=== PATIENT | male | born 1985 | race Caucasian/White ===

== ENCOUNTER 2025-09-30 08:33 | Outpatient (CLI) | payer BC, SELFPAY ==
--- OUTSIDE RECORDS SUMMARY | 2025-08-24 12:01 | XMS_ITS | Encounter Summary ---
Author Organization [facility] Address [address] [place] [address] Care Team Providers Care Runner Out Name Role Phone Provider, No Known Primary Care Provider [phone] Reason for Visit * Reason Comments Chest Pain * Auth/Cert Specialty Diagnoses / Procedures Referred By Juan britt Referred To Contact Diagnoses Pulmonary embolism Referral ID Status Reason Start Date Expiration Date Visits Re quested Visits Authorized [id number] 1 1 Encounter Details Date Type Department Care Team (Latest Contact Info) Description 08/24/2025 1:01 PM EDT - 08/25/2025 1:12 PM EDT Hospital Encounter [facility] [address] [place] [id number] Lance Navarro MD [address] [place] [address] Lisa Cleveland MD [address] [facility] [address] [place] [address] Bala Cruz MD [address] [facility] [address] [place] [address] Acute pulmonary embolism without acute cor pulmonale, unspecified pulmonary embolism type (Primary Dx); Tachycardia; Hyperglycemia Discharge Disposition: Home or Self Care Social History Tobacco Use Types Packs/Day Years Used Date Smoking Tobacco: Never Smokeless Tobacco: Never Alcohol Use Standard Drinks/Week Comments Yes 20 (1 standard drink = 0.6 oz pu re alcohol) AUDIT-C Answer Date Recorded Q1: How often do you have a drink containing alcohol? 4 or more times a week 08/24/2025 Q2: How many drinks containi ng alcohol do you have on a typical day when you are drinking? 5 or 6 Q3: How often do you have si x or more drinks on one occasion? Daily or almost daily 08/24/2025 Abuse Screen Answer Date Recorded Feels Unsafe at Home or Work/School no 08/24/2025 Feels Threatened by Someone no 08/06 Does Anyone Try to Keep You From Having Contact with Others or Doing Things Outside Your Home? no 08/24/2025 Physical Signs of Abuse Present no 08/24/2025 Housing Stability Answer Date Recorded Current Living Arrangements home 08/06 Potentially Unsafe Housing Conditions Not on betsy e 08/24/2025 Family and Community Support Answer Carlo e Recorded Help with Day-to-Day Activities Not on file 08/13/2023 Lonely or Isolated Not on file 08/13/2023 Employment Answer Date Recorded Do you want help finding or keeping work or a jeremi b? Not on file 08/13/2023 Disabilities Answer Date Recorded Difficulty Concentrating, Remembering or Making Decisions no 08/24/2025 Difficulty Managing Errands Independently no 08/24/2025 Education Answer Date Recorded Help with school or training? Not on file Preferred Language Not on file 08/13/2023 Sex and Gender Information Value Date Recorded Sex Assigned at Not on file Legal Sex Male 8:27 PM EDT Gender Identity Not on file Sexual Orientation Not on file documented as of this encounter Last Filed Vital Signs Vital Sign Reading Time Taken Comments Blood Pressure 138/78 08/25/2025 11:15 AM EDT Pulse 79 08/25/2025 11:15 AM EDT Temperature 36.5 C (97.7 F) 08/25/2025 11:15 AM EDT Respiratory Rate 16 08/25/2025 11:15 AM EDT Oxygen Saturation 97% 08/25/2025 11:15 AM EDT Inhaled Oxygen Concentration - - Weight 131 kg (288 lb 1.6 oz) 08/24/2025 4:08 PM EDT Height 185.4 cm (6' 1 ) 08/24/2025 4:08 PM EDT Body Mass Index 38.01 08/24/2025 4:08 PM EDT documented in this encounter Functional Status * Calculated C-SSRS Risk Score (Lifetime/Recent) Answer Date of Assessment Author No Risk Indicated 08/24/2025 12:59 PM EDT Renuka Hogan RN * [place] Suicide Severity Rating Scale (Screener/Recent Self-Report) Question Answer Date of Assessment Author 1. Wish to be (Past 1 Month) No 025 12:59 PM EDT Renuka Hogan RN 2. Non-Specific Active Suici natalya Thoughts (Past 1 Month) No 08/24/2025 12:59 PM EDT Audrey Hogan RN 6. Suicidal Behavior (Lifetime) No 12:59 PM EDT Renuka Hogan RN documented as of this encounter Discharge Summaries * Bala Cruz MD - 08/25/2025 11:06 AM EDT Images from the original note were not included. [facility] Medicine Services DISCHARGE SUMMARY Patient Name: Misael Wills : 1985 Date of Admission: 08/24/2025 1:01 PM Date of Discharge: 08/25/2025 Consults Date and Time Order Name Status Description 08/25/2025 9:35 AM Inpatient Cardiology Consult 08/24/2025 9:55 PM Hematology & Oncology Inpatient Consult 08/24/2025 2:57 PM [facility] (on-call MD unless specified) Details Hospital Course Active Hospital Problems Diagnosis POA ??? Pulmonary embolism [I26.99] Yes ??? Class 2 severe obesity with serious comorbidity in adult [E66.812] Yes ??? Family history of blood clots [Z82.49] Not Applicable ??? History of COVID-19 [Z86.16] Yes ??? HTN (hypertension) [I10] Yes Resolved Hospital Problems No resolved problems to display. Chief Complaint: Off-and-on chest pain panic attacks since Sunday including pain and discomfort in his left groin. History of Present Illness: As written by the admitting physician on the day of admission. Patient is a 39-year-old male who was diagnosed with saddle embolus about 5 years ago when he presented to the local emergency room in [place] with episodes of panic attacks and shortness of breath. Patient was noted to have acute pulmonary embolism that required intervention but extensive workup for underlying cause of PE was never found. Patient was diagnosed with nonprovoked pulmonary embolism and was placed on chronic anticoagulation therapy with Xarelto which he claims to be compliant. Since then patient has multiple visits to the emergency room with episodes of panic attack and shortness of breath and discomfort in his left leg and has had negative evaluations. His last extensive ER visit was 3 months ago when he had negative D-dimer and negative CT scan of the chest PE protocol.In this background patient started feeling some shortness of breath this week and while he was hiking with his which was little bit more than his baseline panic related shortness of breath. He also had few episodes of chest pain and panic attack that resolved on its own. Today he had similar attack along with pain in his left leg that he came to the emergency room and was noted to have rightlung PE while he is taking Xarelto. Patient had negative venous Doppler of the lower extremity but has chronic venous stasis changes. Patient claims that multiple family members on his side have a history of blood clots. Patient claims that he is living healthy lifestyle and has lost lots of weight since his diagnosis of pulmonary embolism 5 years ago. Patient denies any other symptoms at this time. Patient admits touse alcohol but claims that he is drinking responsibly. Patient denies any smoking or taking any hormone replacement therapy. Hospital Course: Misael Wills is a 39 y.o. male presents the hospital with chest pain and panic attack that had been going on for several days. Patient was concerned he was having a new pulmonary embolism. He underwent CT angiogram which did identify PE. I discussed with the radiologist further. He reviewed thisfurther and reported it was unchanged from previous studies and the appearance of the particular thrombus was chronic appearing in nature. The radiologist for our conversation did not feel this was new. This was also reviewed with the hematology on collagen team that was consulted to assist with management. They felt patient should continue current Xarelto. They did note that patient had some coronary artery calcifications on his CT scan and recommended cardiology consult in the setting of chest pain with panic attacks. Cardiology recommended patient add low-dose aspirin and statin and continue to work on his diet and exercise. They did not feel patient showed any sign of ACS. Please see their full note for full details. Lower extremity duplex was negative for DVT. Patient does have some atelectasis on imaging. Blood pressure reasonably normal. Cardiology recommended to hold off blood pressure medicine for now. Primary care follow-up for blood pressure check. Patient is eager to discharge today. We had extensive conversation and he has been cleared by both cardiology and hematology oncology. I do recommend also he consider outpatient psychiatric evaluation if he is having issues with panic attack. He may need treatment for anxiety. He is to follow-up with his primary care provider in 1 week for general hospital follow-up and is agreeable with this plan. At the time of discharge patient was told to take all medications as prescribed, keep all follow-up appointments, and call their doctor or return to the hospital with any worsening or concerning symptoms. Please note that this note was made using Head[employer] voice recognition software Day of Discharge Subjective: No further chest pain. Patient feels well. He is breathing comfortably. He says he feltvery anxious yesterday and worries a lot about the blood clot he had several years ago. We reviewedall the findings. We reviewed radiologist report that these thromboses are unchanged and chronic inappearance. Patient is currently 99% on room air oxygen. He would like to go home today. He agrees to call primary care and follow-up in 1 week for general hospital follow-up. No further chest pain or other cardiac symptoms currently. No current fevers or chills No current shortness of breath or cough No current nausea, vomiting, or diarrhea No current chest pain or palpitations Vital Signs: Temp: [97.4 ??F (36.3 ??C)-98.5 ??F (36.9 ??C)] 97.9 ??F (36.6 ??C) Heart Rate: [74-118] 80 Resp: [16-18] 16 BP: (123-189)/(68-96) 133/84 Physical Exam: Constitutional: Awake, alert Respiratory: No cough or wheezes, normal respirations, nonlabored breathing Cardiovascular: Pulse rate is normal, palpable radial pulses Gastrointestinal: Soft, nontender, nondistended Musculoskeletal: BMI is 38 obese otherwise relatively normal musculature for age Psychiatric: Appropriate affect, cooperative, conversational Neurologic: No slurred speech or facial droop, follows commands Skin: No rashes or jaundice, warm Pertinent and/or Most Recent Results Results from last 7 days Lab Units 08/25/25 0616 08/24/25 1259 WBC 10*3/mm3 9.85 10.03 HEMOGLOBIN g/dL 16.5 17.6 HEMATOCRIT % 48.1 51.7* PLATELETS 10*3/mm3 202 236 SODIUM mmol/L 139 138 POTASSIUM mmol/L 4.1 4.0 CHLORIDE mmol/L 103 100 CO2 mmol/L 23.7 23.5 BUN mg/dL 11.0 12.0 CREATININE mg/dL 0.89 0.97 GLUCOSE mg/dL 88 114* CALCIUM mg/dL 9.2 9.8 Results from last 7 days Lab Units 08/25/25 0616 08/24/25 1259 BILIRUBIN mg/dL 0.8 0.6 ALK PHOS U/L 56 67 ALT (SGPT) U/L 18 23 AST (SGOT) U/L 16 19 PROTIME Seconds -- 17.2* INR -- 1.40* APTT seconds -- 33.8 Results from last 7 days Lab Units 08/25/25 0616 CHOLESTEROL mg/dL 178 TRIGLYCERIDES mg/dL 168* HDL CHOL mg/dL 37* LDL cholesterol 111 Results from last 7 days Lab Units 08/24/25 1410 08/24/25 1259 HSTROP T ng/L <6 <6 Imaging Results (All) Procedure Component Value Units Date/Time XR Chest 1 View [[id number]] Collected: 08/24/25 1501 Updated: 08/24/25 1506 Narrative: XR CHEST 1 VW- DATE OF EXAM: 08/24/2025 2:23 PM INDICATION: Chest Pain Triage Protocol. COMPARISON: CT chest 08/24/2025. TECHNIQUE: A single portable AP view of the chest was obtained. FINDINGS: Right positioning. Overlying artifacts. Subtle bibasilar groundglass opacities. No dense lung consolidation. No pneumothorax. Cardiomediastinal contours within normal limits. No acute osseous abnormality is identified. Impression: Subtle bibasilar groundglass opacities, which could represent atelectasis, pneumonia, and/or pulmonary infarct. This report was finalized on 08/24/2025 3:03 PM by Lanre England MD on CT Angiogram Chest Pulmonary Embolism [[id number]] Collected: 08/24/25 1433 Updated: 08/24/25 1450 Addenda: Additional impression point: Premature coronary artery calcification. This report was finalized on 08/24/2025 2:[address] Davidson Palacios M.D on Signed: 08/24/25 1447 by Alex Palacios MD Narrative: CTA CHEST PULMONARY EMBOLISM HISTORY: Chest pain COMPARISON: None TECHNIQUE: Radiation dose reduction techniques were utilized, including automated exposure control and exposure modulation based on body size. 2 mm images were obtained through the chest without the administration of IV contrast. FINDINGS: CARDIOVASCULAR: Occlusive thrombus within the distal left lower lobe pulmonary artery. Normal heart size without right heart strain. No pericardial effusion. Coronary artery calcium. LUNGS AND AIRWAYS: Basilar groundglass opacities within the peripheral left lower lobe may represent atelectasis versus trace hemorrhage secondary to pulm embolism. Central airways are clear. PLEURA: No pleural effusion or pneumothorax. LYMPH NODES: No lymphadenopathy. MUSCULOSKELETAL: No acute or aggressive osseous lesions. UPPER ABDOMEN: Unremarkable. OTHER: No additional findings. Impression: Occlusive thrombus within the distal left lower lobe pulmonary artery without right heart strain. This report was finalized on 08/24/2025 2:[address] Davidson Palacios M.D on Results for orders placed during the hospital encounter of 08/24/25 Duplex Venous Lower Extremity - Left CAR 08/24/2025 2:34 PM Interpretation Summary ??? Normal left lower extremity venous duplex scan. Results for orders placed during the hospital encounter of 08/24/25 Duplex Venous Lower Extremity - Left CAR 08/24/2025 2:34 PM Interpretation Summary ??? Normal left lower extremity venous duplex scan. Discharge Details Discharge Medications New Medications Instructions Start Date acetaminophen 325 MG tablet Commonly known as: TYLENOL 650 mg, Oral, Every 6 Hours PRN aspirin 81 MG EC tablet 81 mg, Oral, Daily atorvastatin 10 MG tablet Commonly known as: LIPITOR 10 mg, Oral, Nightly Continue These Medications Instructions Start Date rivaroxaban 20 MG tablet Commonly known as: XARELTO 20 mg, Oral, Daily, Pt takes medication everyday at 1430 last taken 08/24 Allergies Allergen Reactions ??? Shellfish Allergy Anaphylaxis ??? Sulfa Antibiotics Unknown - Low Severity Discharge Disposition: Home or Self Care Diet: Hospital: Diet Order Procedures ??? Diet: Cardiac; Healthy Heart (2-3 Na+); Fluid Consistency: Thin (IDDSI 0) Standing Status: Standing Number of Occurrences: 1 Diets:: Cardiac Cardiac Diet:: Healthy Heart (2-3 Na+) Fluid Consistency:: Thin (IDDSI 0) Activity: Activity Instructions Activity as Tolerated Up WIth Assist CODE STATUS: Code Status and Medical Interventions: CPR (Attempt to Resuscitate); Full Support Ordered at: 08/24/25 630 Code Status (Patient has no pulse and is not breathing): CPR (Attempt to Resuscitate) Medical Interventions (Patient has pulse or is breathing): Full Support Additional Instructions for the Follow-ups that You Need to Schedule Discharge Follow-up with Specified Provider: Primary care 1 week; 1 Week As directed To: Primary care 1 week Follow Up: 1 Week Follow-up Information Provider, No Known . Contact information: [facility] [address] Bala Cruz MD 08/25/25 Time Spent on Discharge: I spent greater than 35 minutes on this discharge activity which included:[id number] encounter with the patient, reviewing the data in the system, coordination of the carewith the nursing staff as well as consultants, documentation, and entering orders. documented in this encounter Medications at Time of Discharge acetaminophen (TYLENOL) 325 MG tablet Take 2 tablets by mouth Every 6 (Six) Hours As Needed for Mild Pain. 08/25/2025 aspirin 81 MG EC tablet Take 1 tablet by mouth Daily. 08/25/2025 atorvastatin (LIPITOR) 10 MG tablet Take 1 tablet by mouth Every Night. 90 tablet 08/25/2025 documented as of this encounter Progress Notes * Eli Hackett, RN - 08/25/2025 1:12 PM EDT Discharge Planning Assessment [facility] Patient Name: Misael Wills Today's Date: 08/25/2025 Admit Date: 08/24/2025 Plan: Home Discharge Needs Assessment No documentation. Discharge Plan Row Name 08/25/25 2322 Plan Plan Home Final Discharge Disposition Code 01 - home or self-care Final Note Home Continued Care and Services - Discharged on 08/25/2025 Admission date: 08/24/2025 - Discharge disposition: Home or Self Care No active coordination exists. Expected Discharge Date and Time Expected Discharge Date Expected Discharge Time Aug 25, 2025 Demographic Summary No documentation. Functional Status No documentation. Psychosocial No documentation. Abuse/Neglect No documentation. Legal No documentation. Substance Abuse No documentation. Patient Forms No documentation. Eli Hackett RN documented in this encounter H&P Notes * Lisa Cleveland MD - 08/24/2025 6:10 PM EDT Internal medicine history and physical [facility] Patient Identification: Name: Misael Wills Age: 39 y.o. Sex: male : 1985 Primary Care Physician: Provider, No Known Date of admission:08/24/2025 Chief Complaint: Off-and-on chest pain panic attacks since Sunday including pain and discomfort in his left groin. History of Present Illness: Patient is a 39-year-old male who was diagnosed with saddle embolus about 5 years ago when he presented to the local emergency room in [place] with episodes of panic attacks and shortness of breath. Patient was noted to have acute pulmonary embolism that required intervention but extensive workupfor underlying cause of PE was never found. Patient was diagnosed with nonprovoked pulmonary embolism and was placed on chronic anticoagulation therapy with Xarelto which he claims to be compliant. Since then patient has multiple visits to the emergency room with episodes of panic attack and shortness of breath and discomfort in his left leg and has had negative evaluations. His last extensive ERvisit was 3 months ago when he had negative D-dimer and negative CT scan of the chest PE protocol. In this background patient started feeling some shortness of breath this week and while he was hiking with his which was little bit more than his baseline panic related shortness of breath. He also had few episodes of chest pain and panic attack that resolved on its own. Today he had similar attack along with pain in his left leg that he came to the emergency room and was noted to have right lung PE while he is taking Xarelto. Patient had negative venous Doppler of the lower extremity but has chronic venous stasis changes. Patient claims that multiple family members on his side have a history of blood clots. Patient claims that he is living healthy lifestyle and has lost lots of weight since his diagnosis of pulmonary embolism 5 years ago. Patient denies any other symptoms at this time. Patient admits to use alcohol but claims that he is drinking responsibly. Patient denies any smoking or taking any hormone replacement therapy. Past Medical History: Past Medical History: Diagnosis Date PE (pulmonary thromboembolism) Past Surgical History: Past Surgical History: Procedure Laterality Date HERNIA REPAIR Home Meds: Prescriptions Prior to Admission[1] Current Meds: Current Medications[2] Allergies: Allergies[3] Social History: Social History Tobacco Use Smoking status: Never Smokeless tobacco: Never Substance Use Topics Alcohol use: Yes Alcohol/week: 20.0 - 42.0 standard drinks of alcohol Types: 20 - 42 Standard drinks or equivalent per week Family History: Family History Family history unknown: Yes Review of Systems See history of present illness and past medical history. As noted in the history of presenting illness patient denies any chest pain hematemesis. He does have episodic panic attack and shortness of breath. Vitals: BP 156/73 (BP Location: Left arm, Patient Position: Lying) Pulse 93 Temp 98.1 ??F (36.7 ??C) (Oral) Resp 16 Ht 185.4 cm (73 ) Wt 131 kg (288 lb 1.6 oz) SpO2 97% BMI 38.01 kg/m?? I/O: No intake or output data in the 24 hours ending 08/24/251810 Exam: Patient is examined using the personal protective equipment as per guidelines from infection control for this particular patient as enacted. Hand washing was performed before and after patient interaction. General Appearance: Alert, cooperative, no distress, appears stated age Head: Normocephalic, without obvious abnormality, atraumatic Eyes: PERRL, conjunctiva/corneas clear, EOM's intact, both eyes Ears: Normal external ear canals, both ears Nose: Nares normal, septum midline, mucosa normal, no drainage or sinus tenderness Throat: Lips, tongue, gums normal; oral mucosa pink and moist Neck: Supple, symmetrical, trachea midline, no adenopathy; thyroid: no enlargement/tenderness/nodules; no carotid bruit or JVD Back: Symmetric, no curvature, ROM normal, no CVA tenderness Lungs: Clear to auscultation bilaterally, respirations unlabored Chest Wall: No tenderness or deformity Heart: Regular rate and rhythm, S1 and S2 normal, no murmur, rub or gallop Abdomen: Soft, non-tender, bowel sounds active all four quadrants, no masses, no hepatomegaly, no splenomegaly Extremities: Chronic lower extremity changes involving 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 Pulses: Pulses palpable in all extremities; symmetric all extremities Skin: Skin color normal, Skin is warm and dry, no rashes or palpable lesions Neurologic: CNII-XII intact, motor strength grossly intact, sensation grossly intact to light touch, no focal deficits noted Data Review: I reviewed the patient's new clinical results. Results from last 7 days Lab Units 08/24/25 1259 WBC 10*3/mm3 10.03 HEMOGLOBIN g/dL 17.6 PLATELETS 10*3/mm3 236 Results from last 7 days Lab Units 08/24/25 1259 SODIUM mmol/L 138 POTASSIUM mmol/L 4.0 CHLORIDE mmol/L 100 CO2 mmol/L 23.5 BUN mg/dL 12.0 CREATININE mg/dL 0.97 CALCIUM mg/dL 9.8 GLUCOSE mg/dL 114* XR Chest 1 View Result Date: 08/24/2025 Subtle bibasilar groundglass opacities, which could represent atelectasis, pneumonia, and/or pulmonary infarct. This report was finalized on 08/24/2025 3:03 PM by Lanre England MD on CT Angiogram Chest Pulmonary Embolism Addendum Date: 08/24/2025 Additional impression point: Premature coronary artery calcification. This report was finalized on 08/24/2025 2:[address] Davidson Palacios M.D on Result Date: 08/24/2025 Occlusive thrombus within the distal left lower lobe pulmonary artery without right heart strain. This report was finalized on 08/24/2025 2:[address] Davidson Palacios M.D on Telemetry Scan Final Result Telemetry Scan Final Result ECG 12 Lead ED Triage Standing Order; Chest Pain Final Result HEART RATE=84 bpm RR Pkleolwo=353 ms MN Ktvmizsa=260 ms P Horizontal Quogue= deg P Front Quogue=70 deg QRSD Interval=97 ms QT Ndmjdtxu=926 ms ZGdP=066 ms QRS Quogue=89 deg T Wave Quogue=10 deg - BORDERLINE ECG - Sinus rhythm Consider left atrial enlargement Borderline T wave abnormalities NO PRIOR TRACING AVAILABLE FOR COMPARISON Electronically Signed By: Nazanin QuarlesDIGN[facility] HE[facility]) 2025-08-24 15:59:15 Date and Time of Study:2025-08-24 13:00:13 Assessment: Active Hospital Problems Diagnosis POA Pulmonary embolism [I26.99] Yes Family history of blood clots [Z82.49] Not Applicable History of COVID-19 [Z86.16] Unknown HTN (hypertension) [I10] Unknown History of alcohol use. Medical decision making/care plan: See admitting orders Breakthrough pulmonary embolism with no evidence of right heart strain in the setting of history ofunprovoked massive PE 5 years ago requiring intervention and while on chronic oral anticoagulation therapy with compliance-plan is to start him on therapeutic dose of Lovenox, hematology oncology consultation and consideration for switching him to different anticoagulation therapy given the fact that he has breakthrough PE and had similar symptoms in the past with negative workup. Hypertension-patient is not on any hypertensive regimen. It could be situational elevation in bloodpressure and needs to be monitored with consideration for starting him on long-term blood pressure regimen. History of alcohol use but no evidence of alcohol withdrawal plan is to monitor. Lisa Cleveland MD 08/24/2025 18:11 EDT Parts of this note may be an electronic greaser helper/translation of spoken language to printed text using the [employer] system. [1] Medications Prior to Admission Medication Sig Dispense Refill Last Dose/Taking rivaroxaban (XARELTO) 20 MG tablet Take 1 tablet by mouth Daily. Pt takes medication everyday at 1430 last taken 08/24 [2] Current Facility-Administered Medications: labetalol (NORMODYNE,TRANDATE) injection 10 mg, 10 mg, Intravenous, Once PRN, Lance Navarro MD sodium chloride 0.9 % flush 10 mL, 10 mL, Intravenous, PRN, Lance Navarro MD [3] Allergies Allergen Reactions Shellfish Allergy Anaphylaxis Sulfa Antibiotics Unknown - Low Severity documented in this encounter Consult Notes * Aquiles Mcrae MD - 08/25/2025 11:20 AM EDTAssociated Order(s): IP CONSULT TO CARDIOLOGY Images from the original note were not included. Date of Consultation: 08/25/25 Referral Provider: Dania Baez MD. Reason for Consultation: Coronary artery calcifications by CT. Encounter Provider: Aquiles Mcrae MD Group of Service: [facility] Patient Name: Misael Wills :1985 Chief complaint: Shortness of breath. History of Present Illness: This is a very pleasant 39 year-old male with a history of an unprovoked DVT and saddle pulmonary embolism in October 2020. He has had significant anxiety about this diagnosis as it was very traumatic when it occurred, and has had multiple CT scans over the years (which he freely admits). He presented to the emergency department yesterday with shortness of breath while hiking, as well as intermittent left lower extremity discomfort. A CT angiogram showed a pulmonary embolism, although after speaking with Dr. Baez, this is a chronic distal left lower lobe pulmonary embolism. There were no acute findings. Therefore, he did not actually fail Xarelto. The patient had coincidentally found coronary calcification on his CT. On my review, these are mostprominent in the right coronary artery. He has had no anginal pain. His blood pressure has been elevated here at times, although mainly on admission, which he states is from anxiety. He states that at home, his blood pressure runs mainly in the 120s to 130s systolic. He does not have a family history of coronary artery disease and he is not currently diabetic. Past Medical History: Diagnosis Date PE (pulmonary thromboembolism) Past Surgical History: Procedure Laterality Date HERNIA REPAIR Allergies Allergen Reactions Shellfish Allergy Anaphylaxis Sulfa Antibiotics Unknown - Low Severity No current facility-administered medications on file prior to encounter. Current Outpatient Medications on File Prior to Encounter Medication Sig Dispense Refill rivaroxaban (XARELTO) 20 MG tablet Take 1 tablet by mouth Daily. Pt takes medication everyday at 1430 last taken 08/24 Social History Socioeconomic History Marital status: Tobacco Use Smoking status: Never Smokeless tobacco: Never Vaping Use Vaping status: Never Used Substance and Sexual Activity Alcohol use: Yes Alcohol/week: 20.0 - 42.0 standard drinks of alcohol Types: 20 - 42 Standard drinks or equivalent per week Drug use: Never Sexual activity: Defer Family History Family history unknown: Yes REVIEW OF SYSTEMS: As are noted in the HPI above. Otherwise, all other systems were reviewed, and are negative. Objective: Vitals: 08/25/25 0036 08/25/25 0410 08/25/25 0719 08/25/25 1115 BP: 128/75 146/79 133/84 138/78 BP Location: Left arm Left arm Left arm Left arm Patient Position: Lying Lying Lying Lying Pulse: 74 78 80 79 Resp: 16 16 16 16 Temp: 98.5 ??F (36.9 ??C) 98 ??F (36.7 ??C) 97.9 ??F (36.6 ??C) 97.7 ??F (36.5 ??C) TempSrc: Oral Oral Oral Oral SpO2: 100% 99% 100% 97% Weight: Height: Body mass index is 38.01 kg/m??. Flowsheet Rows Flowsheet Row First Filed Value Admission Height 185.4 cm (73 ) Documented at 08/24/2025 1608 Admission Weight 131 kg (288 lb 1.6 oz) Documented at 08/24/2025 1608 General: No acute distress, alert and oriented x4, pleasant Head: Normocephalic, atraumatic. Eyes: Conjunctivae and sclerae normal, no icterus. Throat: No oral lesions, no thrush, oral mucosa moist. Neck: Supple, trachea midline. Lungs: Clear to auscultation bilaterally Heart: Regular rhythm and normal rate. No murmurs, gallops, or rubs noted. Abdomen: Soft, non-tender, non-distended, positive bowel sounds. Extremities: No clubbing, cyanosis, or edema. Pulses: Pulses palpable and equal bilaterally. Skin: No bleeding or rash. Neuro: Non-focal. Moves all extremities well. Psychiatric: Normal mood and affect. Lab Review: Results from last 7 days Lab Units 08/25/25 0616 SODIUM mmol/L 139 POTASSIUM mmol/L 4.1 CHLORIDE mmol/L 103 CO2 mmol/L 23.7 BUN mg/dL 11.0 CREATININE mg/dL 0.89 GLUCOSE mg/dL 88 CALCIUM mg/dL 9.2 Results from last 7 days Lab Units 08/24/25 1410 08/24/25 1259 HSTROP T ng/L <6 <6 Results from last 7 days Lab Units 08/25/25 0616 WBC 10*3/mm3 9.85 HEMOGLOBIN g/dL 16.5 HEMATOCRIT % 48.1 PLATELETS 10*3/mm3 202 Results from last 7 days Lab Units 08/24/25 1259 INR 1.40* APTT seconds 33.8 Results from last 7 days Lab Units 08/25/25 0616 CHOLESTEROL mg/dL 178 Results from last 7 days Lab Units 08/25/25 0616 CHOLESTEROL mg/dL 178 TRIGLYCERIDES mg/dL 168* HDL CHOL mg/dL 37* LDL CHOL mg/dL 111* EKG (reviewed by me personally): Assessment: 1. History of unprovoked saddle pulmonary embolism and DVT in October 2020, on Xarelto 2. Chronic left lower lobe pulmonary embolism (not acute) 3. Dyslipidemia with low HDL 4. Coronary artery calcifications by CT on 08/24/2025 5. Questionable hypertension Plan: I had a long discussion with the patient. I did review the CT images personally. He has more calcium than would be expected at his age, especially at age 39. His right coronary artery appeared to have the biggest burden on my viewing. However, he does not have any EKG changes consistent with ischemia, and he is not having anginal symptoms. I would utilize this as a preventative technique and treat this as a nonobstructive coronary arterydisease equivalent in a young patient. I recommended potentially starting aspirin 81 mg/day if he can take this in conjunction with his Xarelto. I also recommended starting Lipitor 20 mg/day. I did advise him about potential side effects of statins, and he was okay with starting this. His LDL was 111, although HDL was only 37. I am going to hold on starting him on any antihypertensives as his blood pressure has come down significantly, he does admit that he has a significant amount of anxiety about his previous pulmonary emboli. He is going to follow-up with his physician in [place], [place]. No further cardiac testing needed. Discussed with Dr. Cruz earlier today. Thank you very much for this consult. Marko Mcrae MD * Dania Baez MD - 08/25/2025 9:15 AM EDTAssociated Order(s): IP CONSULT TO HEMATOLOGY AND ONCOLOGY [facility] INITIAL INPATIENT CONSULTATION NOTE REASON FOR CONSULTATION: breakthrough Pulmonary embolism while on Xarelto - treatment recommendations HISTORY OF PRESENT ILLNESS: Misael Wills is a 39 y.o. male with generalized anxiety disorder andalcohol abuse, who we are asked to see today in consultation for anticoagulation recommendation. He has history of unprovoked pulmonary embolism, in October 2020. Per notes from his PCP Dr. Soto(05/13/2021), he had apparently had a negative workup in [facility] with . He has been anticoagulated with Xarelto. Patient has had several CT angiogram chest since 2020. CT angiogram chest from April 07, 2021-no definite central PE. No evidence of right heart strain. CT angiogramchest from July 2021-no acute PE. Occlusion of left lower lobe segmental pulmonary artery which is unchanged since prior exam. CT angiogram from December 2021-no acute PE. Stable occlusion of left lower lobe pulmonary artery most likely secondary to chronic PE. CT angiogram chest obtained yest bob, 08/24/2025 revealed occlusive thrombus within distal left lower lobe pulmonary artery without right heart strain.Bilateral lower extremity duplex unremarkable. Patient reports he had saddle PEin October 2020. He denies any risk factors. He denies having COVID infection around or during thetime of PE. 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 He has been compliant to Eigailh87 mg daily with food. No bleeding issues. He reports he has had to undergo mechanical thrombectomyin 2019 when he was diagnosed with saddle PE. He also reports having varicose veins in bilateral lower extremities which swell up and sometimes can cause pain. Does not use compression stockings. He also reports history of hemochromatosis in his father and reports he is a hemochromatosis carrier. Past Medical History: Diagnosis Date PE (pulmonary thromboembolism) Past Surgical History: Procedure Laterality Date HERNIA REPAIR SOCIAL HISTORY: reports that he has never smoked. He has never used smokeless tobacco. He reports current alcohol use of about 20.0 - 42.0 standard drinks of alcohol per week. He reports that he does not use drugs. FAMILY HISTORY: Family history is unknown by patient. ALLERGIES: Allergies Allergen Reactions Shellfish Allergy Anaphylaxis Sulfa Antibiotics Unknown - Low Severity MEDICATIONS: As listed in the electronic medical record. Review of Systems Constitutional: Negative. Respiratory: Positive for shortness of breath (Resolved). Cardiovascular: Positive for chest pain (Resolved). Gastrointestinal: Negative. Musculoskeletal: Lower extremity varicose veins which cause leg swelling at times Hematological: Negative. Vitals: 08/24/25 1948 08/25/25 0036 08/25/25 0410 08/25/25 0719 BP: 123/75 128/75 146/79 133/84 BP Location: Left arm Left arm Left arm Left arm Patient Position: Lying Lying Lying Lying Pulse: 99 74 78 80 Resp: 16 16 16 16 Temp: 98.2 ??F (36.8 ??C) 98.5 ??F (36.9 ??C) 98 ??F (36.7 ??C) 97.9 ??F (36.6 ??C) TempSrc: Oral Oral Oral Oral SpO2: 96% 100% 99% 100% Weight: Height: Body mass index is 38.01 kg/m??. Physical Exam Constitutional: Appearance: Normal appearance. HENT: Head: Normocephalic and atraumatic. Cardiovascular: Rate and Rhythm: Normal rate and regular rhythm. Pulses: Normal pulses. Heart sounds: Normal heart sounds. No murmur heard. Pulmonary: Effort: Pulmonary effort is normal. No respiratory distress. Breath sounds: Normal breath sounds. Musculoskeletal: Right lower leg: No edema. Left lower leg: No edema. Comments: Varicose veins noted Neurological: General: No focal deficit present. Mental Status: He is alert and oriented to person, place, and time. Psychiatric: Mood and Affect: Mood normal. Behavior: Behavior normal. DIAGNOSTIC DATA: Results from last 7 days Lab Units 08/25/25 0616 08/24/25 1259 WBC 10*3/mm3 9.85 10.03 HEMOGLOBIN g/dL 16.5 17.6 HEMATOCRIT % 48.1 51.7* PLATELETS 10*3/mm3 202 236 Results from last 7 days Lab Units 08/25/25 0616 10/20/25 1259 SODIUM mmol/L 139 138 POTASSIUM mmol/L 4.1 4.0 CHLORIDE mmol/L 103 100 CO2 mmol/L 23.7 23.5 BUN mg/dL 11.0 12.0 CREATININE mg/dL 0.89 0.97 CALCIUM mg/dL 9.2 9.8 BILIRUBIN mg/dL 0.8 0.6 ALK PHOS U/L 56 67 ALT (SGPT) U/L 18 23 AST (SGOT) U/L 16 19 GLUCOSE mg/dL 88 114* IMAGING: CT Angiogram Chest Pulmonary Embolism (08/24/2025 13:41) Duplex Venous Lower Extremity - Left CAR (08/24/2025 14:19) Assessment & Plan ASSESSMENT: This is a 39 y.o. male with: *Chronic distal left lower lobe pulmonary artery occlusion *History of unprovoked PE, October 2020 He has history of unprovoked pulmonary embolism, in October 2020. Per notes from his PCP Dr. Soto(05/13/2021), he had apparently had a negative workup in [facility] with (hematology/oncology). He has been anticoagulated with Xarelto since. April 07, 2021 CT angiogram chest-no definite central PE. No evidence of right heart strain. July 2021 CT angiogram chest-no acute PE. Occlusion of left lower lobe segmental pulmonary artery which is unchanged since prior exam. CT angiogram from December 2021-no acute PE. Stable occlusion of left lower lobe pulmonary artery most likely secondary to chronic PE. 08/24/2025 CT angiogram chest - occlusive thrombus within distal left lower lobe pulmonary artery without right heart strain.Bilateral lower extremity duplex unremarkable 08/25/2025-discussed with radiology, the distal left lower lobe pulmonary artery occlusion is chronic. As such no change to anticoagulation *Premature coronary artery calcifications *Hypertension *Chronic left lower lobe pulmonary artery thrombus Recommend cardiology consult *Alcohol abuse *Generalized anxiety disorder Management per [facility] *Reported hemochromatosis carrier He reports that he is a hemochromatosis carrier. Also reports father has history of hereditary hemochromatosis. He does not know the genetic mutation. Recommended against alcohol and raw seafood. He will continue to follow with his primary care for hemochromatosis. Will obtain ferritin RECOMMENDATIONS/PLAN: Per his primary care notes, patient has had a negative hypercoagulable workup in 2019 with hematology oncology in [facility]. Of note I do not have these results for my review Per discussion with radiologist Dr. Palacios, the distal left lower lobe pulmonary artery occlusionis chronic. Can switch back to Xarelto 20 mg daily with food. He has been tolerating this well for the past 5 years without any bleeding issues Will need long-term anticoagulation Cardiology consult for evaluation and management of patient's hypertension and premature coronary artery calcification seen on CT angiogram chest Discussed vascular surgery consult as outpatient for evaluation of his varicose veins. He prefers to get a referral from his primary care. He [place] from [place] Recommended against alcohol and raw seafood given he reported being hemochromatosis carrier Obtain ferritin given reported hemochromatosis carrier. Nothing else to add from our standpoint. We will sign off Dania Baez MD documented in this encounter Nursing Notes * Bharati Bernal RN - 08/25/2025 5:27 AM EDT Problem: Adult Inpatient Plan of Care Goal: Plan of Care Review Outcome: Progressing Flowsheets (Taken 08/25/2025 0536) Progress: improving Plan of Care Reviewed With: patient Goal: Patient-Specific Goal (Individualized) Outcome: Progressing Goal: Absence of Hospital-Acquired Illness or Injury Outcome: Progressing Intervention: Identify and Manage Fall Risk Recent Flowsheet Documentation Taken 08/25/2025 0400 by Bharati Bernal RN Safety Promotion/Fall Prevention: safety round/check completed Taken 08/25/2025 0218 by Bharati Bernal RN Safety Promotion/Fall Prevention: safety round/check completed Taken 08/25/2025 0012 by Bharati Bernal RN Safety Promotion/Fall Prevention: safety round/check completed Taken 08/24/20252200 by Bharati Bernal RN Safety Promotion/Fall Prevention: safety round/check completed Taken 08/24/20252044 by Bharati Bernal RN Safety Promotion/Fall Prevention: safety round/check completed Intervention: Prevent Skin Injury Recent Flowsheet Documentation Taken 08/25/2025 0012 by Bharati Bernal RN Body Position: position changed independently Taken 08/24/20252044 by Bharati Bernal RN Body Position: sitting up in bed Intervention: Prevent and Manage VTE (Venous Thromboembolism) Risk Recent Flowsheet Documentation Taken 08/24/20252044 by Bharati Bernal RN VTE Prevention/Management: (lovenox) other (see comments) Intervention: Prevent Infection Recent Flowsheet Documentation Taken 08/25/2025 001 by Bharati Bernal RN Infection Prevention: single patient room provided Taken 08/24/20252044 by Bharati Bernal RN Infection Prevention: single patient room provided Goal: Optimal Comfort and Wellbeing Outcome: Progressing Intervention: Provide Person-Centered Care Recent Flowsheet Documentation Taken 08/25/2025 001 by Bharati Bernal RN Trust Relationship/Rapport: care explained Taken 08/24/20252044 by Bharati Bernal RN Trust Relationship/Rapport: care explained choices provided questions answered questions encouraged Goal: Readiness for Transition of Care Outcome: Progressing Problem: Comorbidity Management Goal: Blood Pressure in Desired Range Outcome: Progressing Intervention: Maintain Blood Pressure Management Recent Flowsheet Documentation Taken 08/24/20252044 by Bharati Bernal RN Medication Review/Management: medications reviewed Goal Outcome Evaluation: Plan of Care Reviewed With: patient Progress: improving * Bradley Razo RN - 08/24/2025 6:22 PM EDT Problem: Adult Inpatient Plan of Care Goal: Plan of Care Review Outcome: Progressing Flowsheets (Taken 08/24/2025 1822) Progress: improving Plan of Care Reviewed With: patient Goal: Patient-Specific Goal (Individualized) Outcome: Progressing Goal: Absence of Hospital-Acquired Illness or Injury Outcome: Progressing Intervention: Identify and Manage Fall Risk Recent Flowsheet Documentation Taken 08/24/2025 1620 by Bradley Razo RN Safety Promotion/Fall Prevention: safety round/check completed room organization consistent nonskid shoes/slippers when out of bed clutter free environment maintained assistive device/personal items within reach Intervention: Prevent Skin Injury Recent Flowsheet Documentation Taken 08/24/2025 1620 by Bradley Razo RN Body Position: position changed independently Intervention: Prevent and Manage VTE (Venous Thromboembolism) Risk Recent Flowsheet Documentation Taken 08/24/2025 1620 by Bradley Razo RN VTE Prevention/Management: (pt up ad don) SCDs (sequential compression devices) off patient refused intervention Intervention: Prevent Infection Recent Flowsheet Documentation Taken 08/24/2025 1620 by Bradley Razo RN Infection Prevention: single patient room provided rest/sleep promoted hand hygiene promoted Goal: Optimal Comfort and Wellbeing Outcome: Progressing Intervention: Provide Person-Centered Care Recent Flowsheet Documentation Taken 08/24/2025 1620 by Bradley Razo RN Trust Relationship/Rapport: thoughts/feelings acknowledged questions encouraged questions answered care explained Goal: Readiness for Transition of Care Outcome: Progressing Intervention: Mutually Develop Transition Plan Recent Flowsheet Documentation Taken 08/24/2025 1614 by Bradley Razo RN Transportation Anticipated: car, drives self Patient/Family Anticipated Services at Transition: none Patient/Family Anticipates Transition to: home with family Taken 08/24/2025 1612 by Bradley Razo RN Equipment Currently Used at Home: none Problem: Comorbidity Management Goal: Blood Pressure in Desired Range Outcome: Progressing Intervention: Maintain Blood Pressure Management Recent Flowsheet Documentation Taken 08/24/20251619 by Bradley Razo RN Medication Review/Management: medications reviewed Goal Outcome Evaluation: Plan of Care Reviewed With: patient Progress: improving Patient alert and oriented X 4, on room air, and normal sinus on monitor. Patient denies chest pain, shortness of air, or leg tenderness at this time. Patient denies needs at this time and plan of care ongoing. documented in this encounter ED Notes * Elsa Bonilla RN - 08/24/2025 3:29 PM EDT Nursing report ED to floor Misael Wills 39 y.o. male HPI : HPI Stated Reason for Visit: CP and groin pain Chief Complaint Chief Complaint Patient presents with Chest Pain Admitting doctor: Lisa Cleveland MD Admitting diagnosis: The primary encounter diagnosis was Acute pulmonary embolism without acute cor pulmonale, unspecified pulmonary embolism type. Diagnoses of Tachycardia and Hyperglycemia were also pertinent to this visit. Code status: Current Code Status Date Active Code Status Order ID Comments User Context Not on file Allergies: Shellfish allergy and Sulfa antibiotics Isolation: No active isolations Intake and Output No intake or output data in the 24 hours ending 08/24/25 1529 Weight: There were no vitals filed for this visit. Most recent vitals: Vitals: 08/24/25 1400 08/24/25 1408 08/24/25 1430 08/24/25 1500 BP: 156/69 129/68 Pulse: 118 99 96 Resp: Temp: 97.4 ??F (36.3 ??C) TempSrc: Oral SpO2: 96% 95% 96% Active LDAs/IV Access: Lines, Drains & Airways Active LDAs Name Placement date Placement time Site Days Peripheral IV 08/24/25 1319 20 G Right Antecubital 08/24/25 1319 Antecubital less than 1 Labs (abnormal labs have a star): Labs Reviewed COMPREHENSIVE METABOLIC PANEL - Abnormal; Notable for the following components: Result Value Glucose 114 (*) All other components within normal limits Narrative: GFR Categories in Chronic Kidney Disease (CKD) GFR Category GFR (mL/min/1.73) Interpretation G1 90 or greater Normal or high (1) G2 60-89 Mild decrease (1) G3a 45-59 Mild to moderate decrease G3b 30-44 Moderate to severe decrease G4 15-29 Severe decrease G5 14 or less Kidney failure (1)In the absence of evidence of kidney disease, neither GFR category G1 or G2 fulfill the criteriafor CKD. eGFR calculation 2020 CKD-EPI creatinine equation, which does not include race as a factor CBC WITH AUTO DIFFERENTIAL - Abnormal; Notable for the following components: Hematocrit 51.7 (*) Lymphocytes, Absolute 3.63 (*) All other components within normal limits PROTIME-INR - Abnormal; Notable for the following components: Protime 17.2 (*) INR 1.40 (*) All other components within normal limits TROPONIN - Normal Narrative: High Sensitive Troponin T Reference Range: <14.0 ng/L- Negative Female for AMI <22.0 ng/L- Negative Male for AMI >=14 - Abnormal Female indicating possible myocardial injury. >=22 - Abnormal Male indicating possible myocardial injury. Clinicians would have to utilize clinical acumen, EKG, Troponin, and serial changes to determine ifit is an Acute Myocardial Infarction or myocardial injury due to an underlying chronic condition. APTT - Normal RAINBOW DRAW Narrative: The following orders were created for panel order [place] Draw. Procedure Abnormality Status --------- ------ Green Top (Gel)[[id number]] Final result Lavender Top[[id number]] Final result Gold Top - SST[[id number]] Final result Light Blue Top[[id number]] Final result Please view results for these tests on the individual orders. HIGH SENSITIVITIY TROPONIN T 1HR Narrative: High Sensitive Troponin T Reference Range: <14.0 ng/L- Negative Female for AMI <22.0 ng/L- Negative Male for AMI >=14 - Abnormal Female indicating possible myocardial injury. >=22 - Abnormal Male indicating possible myocardial injury. Clinicians would have to utilize clinical acumen, EKG, Troponin, and serial changes to determine ifit is an Acute Myocardial Infarction or myocardial injury due to an underlying chronic condition. CBC AND DIFFERENTIAL Narrative: The following orders were created for panel order CBC & Differential. Procedure Abnormality Status --------- ------ CBC Auto Differential[[id number]] Abnormal Final result Please view results for these tests on the individual orders. GREEN TOP LAVENDER TOP GOLD TOP - SST LIGHT BLUE TOP EKG: ECG 12 Lead ED Triage Standing Order; Chest Pain Preliminary Result HEART RATE=84 bpm RR Itsffkyr=350 ms MN Nibjyjfq=911 ms P Horizontal Quogue= deg P Front Quogue=70 deg QRSD Interval=97 ms QT Vkllccbz=968 ms DGgF=794 ms QRS Quogue=89 deg T Wave Quogue=10 deg - BORDERLINE ECG - Sinus rhythm Consider left atrial enlargement Borderline T wave abnormalities Date and Time of Study:2025-08-24 13:00:13 Meds given in ED: Medications sodium chloride 0.9 % flush 10 mL (has no administration in time range) labetalol (NORMODYNE,TRANDATE) injection 10 mg (has no administration in time range) iopamidol (ISOVUE-370) 76 % injection 100 mL (100 mL Intravenous Given 08/24/25 1341) Imaging results: XR Chest 1 View Result Date: 08/24/2025 Subtle bibasilar groundglass opacities, which could represent atelectasis, pneumonia, and/or pulmonary infarct. This report was finalized on 08/24/2025 3:03 PM by Lanre England MD on CT Angiogram Chest Pulmonary Embolism Addendum Date: 08/24/2025 Additional impression point: Premature coronary artery calcification. This report was finalized on 08/24/2025 2:[address] Davidson Palacios M.D on Result Date: 08/24/2025 Occlusive thrombus within the distal left lower lobe pulmonary artery without right heart strain. This report was finalized on 08/24/2025 2:[address] Davidson Palacios M.D on Ambulatory status: Social issues: Social History[1] Peripheral Neurovascular Peripheral Neurovascular (Adult) Peripheral Neurovascular WDL: WDL Neuro Cognitive Neuro Cognitive (Adult) Cognitive/Neuro/Behavioral WDL: WDL Learning Respiratory Respiratory WDL Respiratory WDL: WDL Abdominal Pain Pain Assessments Pain (Adult) (0-10) Pain Rating: Rest: 0 NIH Stroke Scale Elsa Bonilla RN 08/24/25 15:29 EDT [1] Social History Socioeconomic History Marital status: Tobacco Use Smoking status: Never Smokeless tobacco: Never Substance and Sexual Activity Alcohol use: Defer Drug use: Defer Sexual activity: Defer * Lance Navarro MD - 08/24/2025 1:05 PM EDT EMERGENCY DEPARTMENT ENCOUNTER Room Number: Date of encounter: 08/24/2025 PCP: Provider, No Known Patient Care Team: Provider, No Known as PCP - General HPI: Context: Misael Wills is a 39 y.o. male who presents to the ED c/o chief complaint of pain shortness of breath. Patient reports he had a panic attack this morning, was having anxious thoughts, hadchest tightness, felt short of breath. Patient reports symptoms lasted for approximately 20 minutesand then resolved. Patient denied any radiation of pain to his neck or extremities, chest pain was not exertional, patient denied any nausea vomiting or diaphoresis. Patient reports that he has a history of panic attacks with similar symptoms but he also has a history of blood clots and has been concerned as he has been having some pain in his left thigh. Patient reports that he has chronic swelling the left leg that is unchanged. Patient denies any redness or warmth in the leg. Patient denies any chest pain or shortness of breath at present. MEDICAL HISTORY REVIEW Reviewed in EPIC PAST MEDICAL HISTORY Active Ambulatory Problems Diagnosis Date Noted No Active Ambulatory Problems Resolved Ambulatory Problems Diagnosis Date Noted No Resolved Ambulatory Problems Past Medical History: Diagnosis Date PE (pulmonary thromboembolism) PAST SURGICAL HISTORY Past Surgical History: Procedure Laterality Date HERNIA REPAIR FAMILY HISTORY Family History Family history unknown: Yes SOCIAL HISTORY Social History[1] ALLERGIES Shellfish allergy and Sulfa antibiotics The patient's allergies have been reviewed PHYSICAL EXAM I have reviewed the triage vital signs and nursing notes. ED Triage Vitals Temp Heart Rate Resp BP SpO2 -- 08/24/25 1253 08/24/25 1300 08/24/25 1257 08/24/25 1253 84 18 (!) 189/96 96 % Temp src Heart Rate Source Patient Position BP Location FiO2 (%) 08/24/25 1253 08/24/25 1253 -- -- -- Oral Monitor General: No acute distress. HENT: NCAT, PERRL, Nares patent. Eyes: no scleral icterus. Neck: trachea midline, no ROM limitations. CV: regular rhythm, regular rate. Respiratory: normal effort, CTAB. Abdomen: soft, nondistended, NTTP, no rebound tenderness, no guarding or rigidity. Musculoskeletal: no deformity. Neuro: alert, moves all extremities, follows commands. Skin: warm, dry. LAB RESULTS Recent Results (from the past 24 hours) Comprehensive Metabolic Panel Collection Time: 08/24/25 12:59 PM Specimen: Blood Result Value Ref Range Glucose 114 (H) 65 - 99 mg/dL BUN 12.0 6.0 - 20.0 mg/dL Creatinine 0.97 0.76 - 1.27 mg/dL Sodium 138 136 - 145 mmol/L Potassium 4.0 3.5 - 5.2 mmol/L Chloride 100 98 - 107 mmol/L CO2 23.5 22.0 - 29.0 mmol/L Calcium 9.8 8.6 - 10.5 mg/dL Total Protein 8.1 6.0 - 8.5 g/dL Albumin 4.5 3.5 - 5.2 g/dL ALT (SGPT) 23 1 - 41 U/L AST (SGOT) 19 1 - 40 U/L Alkaline Phosphatase 67 39 - 117 U/L Total Bilirubin 0.6 0.0 - 1.2 mg/dL Globulin 3.6 gm/dL A/G Ratio 1.3 g/dL BUN/Creatinine Ratio 12.4 7.0 - 25.0 Anion Gap 14.5 5.0 - 15.0 mmol/L eGFR 103.1 >60.0 mL/min/1.73 High Sensitivity Troponin T Collection Time: 08/24/25 12:59 PM Specimen: Blood Result Value Ref Range HS Troponin T <6 <22 ng/L Green Top (Gel) Collection Time: 08/24/25 12:59 PM Result Value Ref Range Extra Tube Hold for add-ons. Lavender Top Collection Time: 08/24/25 12:59 PM Result Value Ref Range Extra Tube hold for add-on Gold Top - SST Collection Time: 08/24/25 12:59 PM Result Value Ref Range Extra Tube Hold for add-ons. Light Blue Top Collection Time: 08/24/25 12:59 PM Result Value Ref Range Extra Tube Hold for add-ons. CBC Auto Differential Collection Time: 08/24/25 12:59 PM Specimen: Blood Result Value Ref Range WBC 10.03 3.40 - 10.80 10*3/mm3 RBC 5.78 4.14 - 5.80 10*6/mm3 Hemoglobin 17.6 13.0 - 17.7 g/dL Hematocrit 51.7 (H) 37.5 - 51.0 % MCV 89.4 79.0 - 97.0 fL MCH 30.4 26.6 - 33.0 pg MCHC 34.0 31.5 - 35.7 g/dL RDW 12.7 12.3 - 15.4 % RDW-SD 41.8 37.0 - 54.0 fl MPV 10.5 6.0 - 12.0 fL Platelets 236 140 - 450 10*3/mm3 Neutrophil % 53.4 42.7 - 76.0 % Lymphocyte % 36.2 19.6 - 45.3 % Monocyte % 7.6 5.0 - 12.0 % Eosinophil % 1.7 0.3 - 6.2 % Basophil % 0.6 0.0 - 1.5 % Immature Grans % 0.5 0.0 - 0.5 % Neutrophils, Absolute 5.36 1.70 - 7.00 10*3/mm3 Lymphocytes, Absolute 3.63 (H) 0.70 - 3.10 10*3/mm3 Monocytes, Absolute 0.76 0.10 - 0.90 10*3/mm3 Eosinophils, Absolute 0.17 0.00 - 0.40 10*3/mm3 Basophils, Absolute 0.06 0.00 - 0.20 10*3/mm3 Immature Grans, Absolute 0.05 0.00 - 0.05 10*3/mm3 nRBC 0.0 0.0 - 0.2 /100 WBC Protime-INR Collection Time: 08/24/25 12:59 PM Specimen: Blood Result Value Ref Range Protime 17.2 (H) 11.7 - 14.2 Seconds INR 1.40 (H) 0.90 - 1.10 aPTT Collection Time: 08/24/25 12:59 PM Specimen: Blood Result Value Ref Range PTT 33.8 22.7 - 35.4 seconds ECG 12 Lead ED Triage Standing Order; Chest Pain Collection Time: 08/24/25 1:00 PM Result Value Ref Range QT Interval 339 ms QTC Interval 402 ms High Sensitivity Troponin T 1Hr Collection Time: 08/24/25 2:10 PM Specimen: Blood Result Value Ref Range HS Troponin T <6 <22 ng/L Troponin T Numeric Delta Duplex Venous Lower Extremity - Left CAR Collection Time: 08/24/25 2:19 PM Result Value Ref Range Right Common Femoral Spont Y Right Common Femoral Competent Y Right Common Femoral Phasic Y Right Common Femoral Compress C Right Common Femoral Augment Y Left Common Femoral Spont Y Left Common Femoral Competent Y Left Common Femoral Phasic Y Left Common Femoral Compress C Left Common Femoral Augment Y Left Saphenofemoral Junction Compress C Left Profunda Femoral Compress C Left Proximal Femoral Compress C Left Mid Femoral Spont Y Left Mid Femoral Competent Y Left Mid Femoral Phasic Y Left Mid Femoral Compress C Left Mid Femoral Augment Y Left Distal Femoral Compress C Left Popliteal Spont Y Left Popliteal Competent Y Left Popliteal Phasic Y Left Popliteal Compress C Left Popliteal Augment Y Left Posterior Tibial Compress C Left Peroneal Compress C Left Gastronemius Compress C Left Greater Saph AK Compress C Left Greater Saph BK Compress C Left Lesser Saph Compress C BH CV VAS PRELIMINARY FINDINGS SCRIPTING 1.0 I ordered the above labs and reviewed the results. RADIOLOGY XR Chest 1 View Result Date: 08/24/2025 XR CHEST 1 VW- DATE OF EXAM: 08/24/2025 2:23 PM INDICATION: Chest Pain Triage Protocol. COMPARISON:CT chest 08/24/2025. TECHNIQUE: A single portable AP view of the chest was obtained. FINDINGS: Right positioning. Overlying artifacts. Subtle bibasilar groundglass opacities. No dense lung consolidation. No pneumothorax. Cardiomediastinal contours within normal limits. No acute osseous abnormality is identified. Subtle bibasilar groundglass opacities, which could represent atelectasis, pneumonia, and/or pulmonary infarct. This report was finalized on 08/24/2025 3:03 PM by Lanre England MD on CT Angiogram Chest Pulmonary Embolism Addendum Date: 08/24/2025 Additional impression point: Premature coronary artery calcification. This report was finalized on 08/24/2025 2:[address] Davidson Palacios M.D on Result Date: 08/24/2025 CTA CHEST PULMONARY EMBOLISM HISTORY: Chest pain COMPARISON: None TECHNIQUE: Radiation dose reduction techniques were utilized, including automated exposure control and exposure modulation based on body size. 2 mm images were obtained through the chest without the administration of IV contrast. FINDINGS: CARDIOVASCULAR: Occlusive thrombus within the distal left lower lobe pulmonary artery. Normalheart size without right heart strain. No pericardial effusion. Coronary artery calcium. LUNGS AND AIRWAYS: Basilar groundglass opacities within the peripheral left lower lobe may represent atelectasis versus trace hemorrhage secondary to pulm embolism. Central airways are clear. PLEURA: No pleuraleffusion or pneumothorax. LYMPH NODES: No lymphadenopathy. MUSCULOSKELETAL: No acute or aggressive osseous lesions. UPPER ABDOMEN: Unremarkable. OTHER: No additional findings. Occlusive thrombus within the distal left lower lobe pulmonary artery without right heart strain. This report was finalized on 08/24/2025 2:[address] Davidson Palacios M.D on Duplex Venous Lower Extremity - Left CAR Result Date: 08/24/2025 Normal left lower extremity venous duplex scan. I ordered the above noted radiological studies. I reviewed the images and results. I agree with theradiologist interpretation. PROCEDURES Procedures MEDICATIONS GIVEN IN ER Medications sodium chloride 0.9 % flush 10 mL (has no administration in time range) labetalol (NORMODYNE,TRANDATE) injection 10 mg (has no administration in time range) iopamidol (ISOVUE-370) 76 % injection 100 mL (100 mL Intravenous Given 08/24/25 1341) PROGRESS, DATA ANALYSIS, CONSULTS, AND MEDICAL DECISION MAKING A complete history and physical exam have been performed. All available laboratory and imaging results have been reviewed by myself prior to disposition. MDM After the initial H&P, I discussed pertinent information from history and physical exam with patient/family. Discussed differential diagnosis. Discussed plan for ED evaluation/workup/treatment. All questions answered. Patient/family is agreeable with plan. ED Course as of 08/24/25 1529 Mon Aug 24, 2025 1305 My differential diagnosis for chest pain includes but is not limited to: Muscle strain, costochondritis, myositis, pleurisy, rib fracture, intercostal neuritis, herpes zoster, tumor, myocardial infarction, coronary syndrome, unstable angina, angina, aortic dissection, mitral valve prolapse, pericarditis, palpitations, pulmonary embolus, pneumonia, pneumothorax, lung cancer, GERD, esophagitis, esophageal spasm [JG] 1305 EKG independently viewed and contemporaneously interpreted by ED physician. Time: 1300. Rate 84. Interpretation: Normal sinus rhythm, right axis deviation, normal QRS, no acute ST changes. [JG] 1307 Review of prior external notes (non-ED) -and- Review of prior external test results outside ofthis encounter: I reviewed patient's primary care office visit note from December of this year, patient complainingof back pain that occurred while lifting weights. Patient has a history of DVT and PE on Eliquis. Ireviewed patient's CT angiogram chest from December 2021, no acute pulmonary embolism. [JG] 1413 Reviewed chest x-ray on PACS, no pulmonary infiltrates per my read. [JG] 1428 Preliminary report per ultrasound as patient is negative for DVT/SVT in left lower extremity. [JG] 1456 Patient with acute PE of the distal left lower lobe pulmonary artery, no signs of heart strain, now on oxygen. Consulting hospitalist for admission. [JG] 1524 Phone call with SIMON Conti. Discussed the patient, relevant history, exam, diagnostics, ED findings/progress, and concerns. They agree to admit the patient to telemetry observation. Care assumed by the admitting physician at this time. [JG] 1525 Patient reassessed. Discussed ED findings, differential diagnosis, and the need for admission for evaluation/treatment. They are agreeable to admission and all questions were answered. [JG] ED Course User Index [JG] Lance Navarro MD OF 15:29 EDT VITALS: BP - 129/68 HR - 96 TEMP - 97.4 ??F (36.3 ??C) (Oral) O2 SATS - 96% DIAGNOSIS Final diagnoses: Acute pulmonary embolism without acute cor pulmonale, unspecified pulmonary embolism type Tachycardia Hyperglycemia DISPOSITION ADMISSION Discussed treatment plan and reason for admission with pt/family and admitting physician. Pt/familyvoiced understanding of the plan for admission for further testing/treatment as needed. [1] Social History Socioeconomic History Marital status: Tobacco Use Smoking status: Never Smokeless tobacco: Never Substance and Sexual Activity Alcohol use: Defer Drug use: Defer Sexual activity: Defer Lance Navarro MD 08/24/25 1529 * Renuka Hogan RN - 08/24/2025 12:56 PM EDT CP that started 08/22. Hx of saddle PE. Pt is taking Xerelto. Pt also c/o of left sided groin pain documented in this encounter Plan of Treatment Not on file documented as of this encounter Procedures Procedure Name Priority Date/Time Associated Diagnosis Comments CBC WITH AUTO DIFFERENTIAL Urgent 08/25/2025 6:16 AM EDT FERRITIN Add-On 08/25/2025 6:16 AM EDT LIPID PANEL Add-On 08/25/2025 6:16 AM EDT COMPREHENSIVE METABOLIC PANEL Urgent 08/25/2025 6:16 AM EDT SCANNED - TELEMETRY 08/25/2025 5 :35 AM EDT SCANNED - TELEMETRY 08/25/2025 1 2:00 AM EDT SCANNED - TELEMETRY 08/24/2025 4 :24 PM EDT SCANNED - TELEMETRY 08/24/2025 4 :15 PM EDT XR CHEST 1 VW STAT 08/24/2025 2:34 PM EDT DUPLEX VENOUS LOWER EXTREMITY LEFT CAR STAT 08/24/2025 2:19 PM EDT HIGH SENSITIVITIY TROPONIN T 1HR STAT 08/24/2025 2:[address] ANGIOGRAM CHEST PULMONARY EMBOLISM STAT 08/24/2025 1:41 PM EDT ECG 12-LEAD STAT 08/24/2025 1:00 PM EDT GOLD TOP - SST STAT 08/24/2025 12:59 PM EDT DK GREEN TOP STAT 08/24/2025 12:59 PM EDT CBC WITH AUTO DIFFERENTIAL STAT 08/24/2025 12:59 PM EDT LAVENDER TOP STAT 08/24/2025 12:59 PM EDT LIGHT BLUE TOP STAT 08/24/2025 12:59 PM EDT RAINBOW DRAW STAT 08/24/2025 12:59 PM EDT TROPONIN STAT 08/24/2025 12:59 PM EDT APTT STAT 08/24/2025 12:59 PM EDT PROTIME-INR STAT 08/24/2025 12:59 PM EDT CBC AND DIFFERENTIAL STAT 08/24/2025 12:59 PM EDT COMPREHENSIVE METABOLIC PANEL STAT 08/24/2025 12:[address] OUTSIDE FILMS Routine 12/20/2021 12:[address] OUTSIDE FILMS Routine 08/03/2021 12:0 0 AM EDT documented in this encounter Results * (ABNORMAL) Ferritin (08/25/2025 6:16 AM EDT) Pathologist [facility] Ferritin 625.00(H) 30.00 - 400.00 ng/mL 08/25/2025 1:12 PM EDT [facility] Blood Line / Unknown 08/25/2025 6: 16 AM EDT 08/25/2025 6:51 AM EDT Narrative [facility] - 08/25/2025 1:12 PM EDT Results may be falsely decreased if patient taking Biotin. us Dania Baez MD LAB BLOOD ORDERABLES Final Resul t [facility]
[address] [place] [address], * (ABNORMAL) Lipid Panel (08/25/2025 6:16 AM EDT) Total Cholesterol 178 0 - 200 mg/dL 08/25/2025 11:24 AM EDT [facility] Triglycerides 168(H) 0 - 150 mg/dL 08/25/2025 11:24 AM EDT [facility] HDL Cholesterol 37(L) 40 - 60 mg/dL 08/25/2025 11:24 AM EDT [facility] LDL Cholesterol 111(H) 0 - 100 mg/dL 08/25/2025 11:24 AM EDT [facility] VLDL Cholesterol 30 5 - 40 mg/dL 08/25/2025 11:24 AM EDT [facility] LDL/HDL Ratio 2.90 08/25/2025 11:24 AM EDT [facility] Blood Line / Unknown 08/25/2025 6: 16 AM EDT 08/25/2025 6:51 AM EDT Narrative [facility] - 08/25/2025 11:24 AM EDT Cholesterol Reference Ranges (U.S. Department of Health and Human Services ATP III Classifications) Desirable <200 mg/dL Borderline High 200-239 mg/dL High Risk >240 mg/dL Triglyceride Reference Ranges (U.S. Department of Health and Human Services ATP III Classifications) Normal <150 mg/dL Borderline High 150-199 mg/dL High 200-499 mg/dL Very High >500 mg/dL HDL Reference Ranges (U.S. Department of Health and Human Services ATP III Classifications) Low <40 mg/dl (major risk factor for CHD) High >60 mg/dl ('negative' risk factor for CHD) LDL Reference Ranges (U.S. Department of Health and Human Services ATP III Classifications) Optimal <100 mg/dL Near Optimal 100-129 mg/dL Borderline High 130-159 mg/dL High 160-189 mg/dL Very High >189 mg/dL LDL is calculated using the NIH LDL-C calculation. Bala Cruz MD LAB BLOOD ORDERABLES F inal Result [facility]
[address] [place] [address], * (ABNORMAL) CBC Auto Differential (08/25/2025 6:16 AM EDT) [facility] WBC 9.85 3.40 - 10.80 10*3/mm3 08/25/2025 6:59 AM EDT [facility] RBC 5.38 4.14 - 5.80 10*6/mm3 08/25/2025 6:59 AM EDT [facility] Hemoglobin 16.5 13.0 - 17.7 g/dL 08/25/2025 6:59 AM EDT [facility] Hematocrit 48.1 37.5 - 51.0 % 08/25/2025 6:59 AM T [facility] MCV 89.4 79.0 - 97.0 fL 08/25/2025 6:59 AM EDT [facility] MCH 30.7 26.6 - 33.0 pg 08/25/2025 6:59 AM [facility] MCHC 34.3 31.5 - 35.7 g/dL 08/25/2025 6:59 AM T [facility] RDW 12.4 12.3 - 15.4 % 08/25/2025 6:59 AM [facility] RDW-SD 40.2 37.0 - 54.0 fl 08/25/2025 6:59 AM [facility] MPV 10.7 6.0 - 12.0 fL 08/25/2025 6:59 AM [facility] Platelets 202 140 - 450 10*3/mm3 08/25/2025 6:59 AM [facility] Neutrophil % 49.2 42.7 - 76.0 % 08/25/2025 6:59 AM [facility] Lymphocyte % 38.2 19.6 - 45.3 % 08/25/2025 6:59 AM T [facility] Monocyte % 9.3 5.0 - 12.0 % 08/25/2025 6:59 AM T [facility] Eosinophil % 2.1 0.3 - 6.2 % 08/25/2025 6:59 AM EDT [facility] Basophil % 0.7 0.0 - 1.5 % 08/25/2025 6:59 AM T [facility] Immature Grans % 0.5 0.0 - 0.5 % 08/25/2025 6:59 AM EDT [facility] Neutrophils, Absolute 4.84 1.70 - 7.00 10*3/mm3 08/25/2025 6:59 AM EDT [facility] Lymphocytes, Absolute 3.76(H) 0.70 - 3.10 10*3/mm3 08/25/2025 6:59 AM EDT [facility] Monocytes, Absolute 0.92(H) 0.10 - 0.90 10*3/mm3 08/25/2025 6:59 AM EDT [facility] Eosinophils, Absolute 0.21 0.00 - 0.40 10*3/mm3 08/25/2025 6:59 AM EDT [facility] Basophils, Absolute 0.07 0.00 - 0.20 10*3/mm3 08/25/2025 6:59 AM EDT [facility] Immature Grans, Absolute 0.05 0.00 - 0.05 10*3/mm3 08/25/2025 6:59 AM EDT [facility] nRBC 0.0 0.0 - 0.2 /100 WBC 08/25/2025 6:59 AM EDT [facility] Blood Line / Unknown 08/25/2025 6: 16 AM EDT 08/25/2025 6:51 AM EDT us Lisa Cleveland MD LAB BLOOD ORDERABLES Final Resul t [facility]
[address] [place] [address], * Comprehensive Metabolic Panel (08/25/2025 6:16 AM EDT) Glucose 88 65 - 99 mg/dL 08/25/2025 7:17 AM EDT [facility] BUN 11.0 6.0 - 20.0 mg/dL 08/25/2025 7:17 AM EDT [facility] Creatinine 0.89 0.76 - 1.27 mg/dL 08/25/2025 7:17 AM EDT [facility] Sodium 139 136 - 145 mmol/L 08/25/2025 7:17 AM EDT [facility] Potassium 4.1 3.5 - 5.2 mmol/L 08/25/2025 7:17 AM EDT [facility] Chloride 103 98 - 107 mmol/L 08/25/2025 7:17 AM [facility] CO2 23.7 22.0 - 29.0 mmol/L 08/25/2025 7:17 AM [facility] Calcium 9.2 8.6 - 10.5 mg/dL 08/25/2025 7:17 AM [facility] Total Protein 7.0 6.0 - 8.5 g/dL 08/25/2025 7:17 AM [facility] Albumin 3.7 3.5 - 5.2 g/dL 08/25/2025 7:17 AM [facility] ALT (SGPT) 18 1 - 41 U/L 08/25/2025 7:17 AM [facility] AST (SGOT) 16 1 - 40 U/L 08/25/2025 7:17 AM [facility] Alkaline Phosphatase 56 39 - 117 U/L 08/25/2025 7:17 AM [facility] Total Bilirubin 0.8 0.0 - 1.2 mg/dL 08/25/2025 7:17 AM [facility] Globulin 3.3 gm/dL 08/25/2025 7:17 AM [facility] A/G Ratio 1.1 g/dL 08/25/2025 7:17 AM [facility] BUN/Creatinine Ratio 12.4 7.0 - 25.0 08/25/2025 7:17 AM [facility] Anion Gap 12.3 5.0 - 15.0 mmol/L 08/25/2025 7:17 AM [facility] eGFR 113.2 >60.0 mL/min/1.7 3 08/25/2025 7:17 AM [facility] Blood Line / Unknown 08/25/2025 6: 16 AM EDT 08/25/2025 6:51 AM [facility] - 08/25/2025 7:17 AM EDT GFR Categories in Chronic Kidney Disease (CKD) GFR Category GFR (mL/min/1.73) Interpretation G1 90 or greater Normal or high (1) G2 60-89 Mild decrease (1) G3a 45-59 Mild to moderate decrease G3b 30-44 Moderate to severe decrease G4 15-29 Severe decrease G5 14 or less Kidney failure (1)In the absence of evidence of kidney disease, neither GFR category G1 or G2 fulfill the criteria for CKD. eGFR calculation 2020 CKD-EPI creatinine equation, which does not include race as a factor Result [facility] Lisa Cleveland MD LAB BLOOD ORDERABLES Final Resul t [facility]
[address] [place] [address], * Telemetry Scan (08/25/2025 5:35 AM EDT) Result [facility] Onbase ECG ORDERABLES Final Result * Telemetry Scan (08/25/2025 12:00 AM EDT) Result [facility] Onbase ECG ORDERABLES Final Result * Telemetry Scan (08/24/2025 4:24 PM EDT) Result [facility] Onbase ECG ORDERABLES Final Result * Telemetry Scan (08/24/2025 4:15 PM EDT) Result [facility] Onbase ECG ORDERABLES Final Result * XR Chest 1 View (08/24/2025 2:34 PM EDT) Anatomical Region Laterality Modality Body N/A Radiographic Pearl ging 08/24/2025 3:01 PM EDT Impressions 08/24/2025 3:03 PM EDT Subtle bibasilar groundglass opacities, which could represent atelectasis, pneumonia, and/or pulmonary infarct. This report was finalized on 08/24/2025 3:03 PM by Lanre England MD on Narrative 08/24/2025 3:03 PM EDT XR CHEST 1 VW- DATE OF EXAM: 08/24/2025 2:23 PM INDICATION: Chest Pain Triage Protocol. COMPARISON: CT chest 08/24/2025. TECHNIQUE: A single portable AP view of the chest was obtained. FINDINGS: Right positioning. Overlying artifacts. Subtle bibasilar groundglass opacities. No dense lung consolidation. No pneumothorax. Cardiomediastinal contours within normal limits. No acute osseous abnormality is identified. Procedure Note Lanre England MD - 08/24/2025 XR CHEST 1 VW- DATE OF EXAM: 08/24/2025 2:23 PM INDICATION: Chest Pain Triage Protocol. COMPARISON: CT chest 08/24/2025. TECHNIQUE: A single portable AP view of the chest was obtained. FINDINGS: Right positioning. Overlying artifacts. Subtle bibasilar groundglass opacities. No dense lung consolidation. No pneumothorax. Cardiomediastinal contours within normal limits. No acute osseous abnormality is identified. IMPRESSION: Subtle bibasilar groundglass opacities, which could represent atelectasis, pneumonia, and/or pulmonary infarct. This report was finalized on 08/24/2025 3:03 PM by Lanre England MD on us Lance Navarro MD IMG DIAGNOSTIC IMAGING ORDER GABY Final Result * Duplex Venous Lower Extremity - Left CAR (08/24/2025 2:19 PM EDT) Right Common Femoral Spont Y Right Common Femoral Competent Y Right Common Femoral Phasic Y Right Common Femoral Compress C Right Common Femoral Augment Y Left Common Femoral Spont Y Left Common Femoral Competent Y Left Common Femoral Phasic Y Left Common Femoral Compress C Left Common Femoral Augment Y Left Saphenofemoral Junction Compress C Left Profunda Femoral Compress C Left Proximal Femoral Compress C Left Mid Femoral Spont Y Left Mid Femoral Competent Y Left Mid Femoral Phasic Y Left Mid Femoral Compress C Left Mid Femoral Augment Y Left Distal Femoral Compress C Left Popliteal Spont Y Left Popliteal Competent Y Left Popliteal Phasic Y Left Popliteal Compress C Left Popliteal Augment Y Left Posterior Tibial Compress C Left Peroneal Compress C Left Gastronemius Compress C Left Greater Saph AK Compress C Left Greater Saph BK Compress C Left Lesser Saph Compress C BH CV VAS PRELIMINARY FINDINGS SCRIPTING 1.0 Anatomical Region Laterality Modality Ultrasound Narrative 08/24/2025 2:34 PM EDT Normal left lower extremity venous duplex scan. Study Impression Right Common Femoral: No deep vein thrombosis noted. Left Common Femoral: No deep vein thrombosis noted. Left Saphenofemoral Junction: No superficial thrombophlebitis noted. Left Proximal Femoral: No deep vein thrombosis noted. Left Mid Femoral: No deep vein thrombosis noted. Left Distal Femoral: No deep vein thrombosis noted. Left Popliteal: No deep vein thrombosis noted. Left Posterior Tibial: No deep vein thrombosis noted. Left Peroneal: No deep vein thrombosis noted. Left Gastrocnemius: No deep vein thrombosis noted. Left Great Saphenous Above Knee: No superficial thrombophlebitis noted. Left Great Saphenous Below Knee: No superficial thrombophlebitis noted. Preliminary Findings Normal left lower extremity venous duplex exam Additional Study Details Study findings given to Lance Navarro MD on 08/24/2025 at 14:29 EDT. Study performed at bedside. us Lance Navarro MD CV VASCULAR ORDERABLES Final Result * High Sensitivity Troponin T 1Hr (08/24/2025 2:10 PM EDT) HS Troponin T <6 <22 ng/L 08/24/2025 2:40 PM EDT [facility] Troponin T Numeric Delta 08/24/2025 2:40 PM EDT [facility] Comment:Unable to calculate. Blood Line / Unknown 08/24/2025 2: 10 PM EDT 08/24/2025 2:15 PM EDT Narrative [facility] - 08/24/2025 2:40 PM EDT High Sensitive Troponin T Reference Range: <14.0 ng/L- Negative Female for AMI <22.0 ng/L- Negative Male for AMI >=14 - Abnormal Female indicating possible myocardial injury. >=22 - Abnormal Male indicating possible myocardial injury. Clinicians would have to utilize clinical acumen, EKG, Troponin, and serial changes to determine if it is an Acute Myocardial Infarction or myocardial injury due to an underlying chronic condition. us Lance Navarro MD LAB BLOOD ORDERABLES Final R esult [facility]
[address] [place] [address], [place] [phone] * CT Angiogram Chest Pulmonary Embolism (08/24/2025 1:41 PM EDT) Anatomical Region Laterality Modality Chest N/A Computed Tomogra phy 08/24/2025 2:33 PM EDT Addenda Addendum by Alex Palacios MD on 08/25/2025 11:42 AM EDT Unchanged occlusive thrombus within the distal left lower lobe pulmonary artery without the development of interval collateral vessels. No acute pulmonary embolism. This report was finalized on 08/25/2025 11:[address] Davidson Palacios M.D on Addendum by Alex Palacios MD on 08/24/2025 2:47 PM EDT Additional impression point: Premature coronary artery calcification. This report was finalized on 08/24/2025 2:[address] Davidson Palacios M.D on Impressions 08/24/2025 2:42 PM EDT Occlusive thrombus within the distal left lower lobe pulmonary artery without right heart strain. This report was finalized on 08/24/2025 2:[address] Davidson Palacios M.D on Narrative 08/24/2025 2:42 PM EDT CTA CHEST PULMONARY EMBOLISM HISTORY: Chest pain COMPARISON: None TECHNIQUE: Radiation dose reduction techniques were utilized, including automated exposure control and exposure modulation based on body size. 2 mm images were obtained through the chest without the administration of IV contrast. FINDINGS: CARDIOVASCULAR: Occlusive thrombus within the distal left lower lobe pulmonary artery. Normal heart size without right heart strain. No pericardial effusion. Coronary artery calcium. LUNGS AND AIRWAYS: Basilar groundglass opacities within the peripheral left lower lobe may represent atelectasis versus trace hemorrhage secondary to pulm embolism. Central airways are clear. PLEURA: No pleural effusion or pneumothorax. LYMPH NODES: No lymphadenopathy. MUSCULOSKELETAL: No acute or aggressive osseous lesions. UPPER ABDOMEN: Unremarkable. OTHER: No additional findings. Procedure Note Alex Palacios MD - 08/24/2025 CTA CHEST PULMONARY EMBOLISM HISTORY: Chest pain COMPARISON: None TECHNIQUE: Radiation dose reduction techniques were utilized, including automated exposure control and exposure modulation based on body size. 2 mm images were obtained through the chest without the administration of IV contrast. FINDINGS: CARDIOVASCULAR: Occlusive thrombus within the distal left lower lobe pulmonary artery. Normal heart size without right heart strain. No pericardial effusion. Coronary artery calcium. LUNGS AND AIRWAYS: Basilar groundglass opacities within the peripheral left lower lobe may represent atelectasis versus trace hemorrhage secondary to pulm embolism. Central airways are clear. PLEURA: No pleural effusion or pneumothorax. LYMPH NODES: No lymphadenopathy. MUSCULOSKELETAL: No acute or aggressive osseous lesions. UPPER ABDOMEN: Unremarkable. OTHER: No additional findings. IMPRESSION: Occlusive thrombus within the distal left lower lobe pulmonary artery without right heart strain. This report was finalized on 08/24/2025 2:[address] Davidson Palacios M.D on us Lance Navarro MD IMG CT ORDERABLES Edited Res ult - Final * ECG 12 Lead ED Triage Standing Order; Chest Pain (08/24/2025 1:00 PM EDT) QT Interval 339 ms ECG QTC Interval 402 ms ECG 08/24/2025 1:00 PM EDT Narrative ECG - 08/24/2025 3:59 PM EDT HEART RATE=84 bpm RR Tvmhvxfm=446 ms MN Buikwdlb=436 ms P Horizontal Quogue= deg P Front Quogue=70 deg QRSD Interval=97 ms QT Uijyyzsn=185 ms SOiP=446 ms QRS Quogue=89 deg T Wave Quogue=10 deg - BORDERLINE ECG - Sinus rhythm Consider left atrial enlargement Borderline T wave abnormalities NO PRIOR TRACING AVAILABLE FOR COMPARISON Electronically Signed By: Nazanin Quarles ([facility]) 2025-08-24 15:59:15 Date and Time of Study:2025-08-24 13:00:13 Procedure Note Nazanin Quarles MD - 08/24/2025 HEART RATE=84 bpm RR Dxifroms=807 ms MN Hvqfoleo=430 ms P Horizontal Quogue= deg P Front Quogue=70 deg QRSD Interval=97 ms QT Qwiahjcl=205 ms CIuQ=117 ms QRS Quogue=89 deg T Wave Quogue=10 deg - BORDERLINE ECG - Sinus rhythm Consider left atrial enlargement Borderline T wave abnormalities NO PRIOR TRACING AVAILABLE FOR COMPARISON Electronically Signed By: Nazanin Quarles ([facility]) 2025-08-24 15:59:15 Date and Time of Study:2025-08-24 13:00:13 Lance Navarro MD ECG ORDERABLES Final Result Performing Organization Address [facility] Co de Phone Number ECG * aPTT (08/24/2025 12:59 PM EDT) PTT 33.8 22.7 - 35.4 seconds 08/24/2025 1:30 PM EDT [facility] Blood Venipuncture / Unknown 08/24/2025 12:59 PM EDT 08/24/2025 1:03 PM EDT Lance Navarro MD LAB BLOOD ORDERABLES Final R esult Performing Organization Address [facility]/ZIP Co de Phone Number [facility]
[address] [place] [address], [place] [phone] * (ABNORMAL) Protime-INR (08/24/2025 12:59 PM EDT) Protime 17.2(H) 11.7 - 14.2 Seconds 08/24/2025 1:30 PM EDT [facility] INR 1.40(H) 0.90 - 1.10 08/24/2025 1:30 PM EDT [facility] Blood Venipuncture / Unknown 08/24/2025 12:59 PM EDT 08/24/2025 1:03 PM EDT us Lance Navarro MD LAB BLOOD ORDERABLES Final R esult [facility]
[address] [place] [address], * (ABNORMAL) CBC Auto Differential (08/24/2025 12:59 PM EDT) WBC 10.03 3.40 - 10.80 10*3/mm3 08/24/2025 1:09 PM EDT [facility] RBC 5.78 4.14 - 5.80 10*6/mm3 08/24/2025 1:09 PM EDT [facility] Hemoglobin 17.6 13.0 - 17.7 g/dL 08/24/2025 1:09 PM EDT [facility] Hematocrit 51.7(H) 37.5 - 51.0 % 08/24/2025 1:09 PM EDT [facility] MCV 89.4 79.0 - 97.0 fL 08/24/2025 1:09 PM EDT [facility] MCH 30.4 26.6 - 33.0 pg 08/24/2025 1:09 PM EDT [facility] MCHC 34.0 31.5 - 35.7 g/dL 08/24/2025 1:09 PM EDT [facility] RDW 12.7 12.3 - 15.4 % 08/24/2025 1:09 PM EDT [facility] RDW-SD 41.8 37.0 - 54.0 fl 08/24/2025 1:09 PM EDT [facility] MPV 10.5 6.0 - 12.0 fL 08/24/2025 1:09 PM [facility] Platelets 236 140 - 450 10*3/mm3 08/24/2025 1:09 PM [facility] Neutrophil % 53.4 42.7 - 76.0 % 08/24/2025 1:09 PM [facility] Lymphocyte % 36.2 19.6 - 45.3 % 08/24/2025 1:09 PM [facility] Monocyte % 7.6 5.0 - 12.0 % 08/24/2025 1:09 PM [facility] Eosinophil % 1.7 0.3 - 6.2 % 08/24/2025 1:09 PM [facility] Basophil % 0.6 0.0 - 1.5 % 08/24/2025 1:09 PM [facility] Immature Grans % 0.5 0.0 - 0.5 % 08/24/2025 1:09 PM [facility] Neutrophils, Absolute 5.36 1.70 - 7.00 10*3/mm3 08/24/2025 1:09 PM [facility] Lymphocytes, Absolute 3.63(H) 0.70 - 3.10 10*3/mm3 08/24/2025 1:09 PM [facility] Monocytes, Absolute 0.76 0.10 - 0.90 10*3/mm3 08/24/2025 1:09 PM [facility] Eosinophils, Absolute 0.17 0.00 - 0.40 10*3/mm3 08/24/2025 1:09 PM [facility] Basophils, Absolute 0.06 0.00 - 0.20 10*3/mm3 08/24/2025 1:09 PM [facility] Immature Grans, Absolute 0.05 0.00 - 0.05 10*3/mm3 08/24/2025 1:09 PM [facility] nRBC 0.0 0.0 - 0.2 /100 WBC 08/24/2025 1:09 PM [facility] Blood Venipuncture / Unknown 08/24/2025 12:59 PM EDT 08/24/2025 1:03 PM EDT us Lance Navarro MD LAB BLOOD ORDERABLES Final R esult Performing Organization Address City/[facility]/ZIP Co de Phone Number [facility]
[address] [place] [address], [place] [phone] * Light Blue Top (08/24/2025 12:59 PM EDT) Extra Tube Hold for add-ons. 08/24/2025 1:15 PM EDT [facility] Comment:Auto resulted Blood Venipuncture / Unknown 08/24/2025 12:59 PM EDT 08/24/2025 1:03 PM EDT us Lance Navarro MD LAB BLOOD ORDER ONLY Final R esult Performing Organization Address [facility] Co de Phone Number [facility]
[address] [place] [id number], [place] [phone] * Gold Top - SST (08/24/2025 12:59 PM EDT) Extra Tube Hold for add-ons. 08/24/2025 1:15 PM EDT [facility] Comment:Auto resulted. Blood Venipuncture / Unknown 08/24/2025 12:59 PM EDT 08/24/2025 1:03 PM EDT us Lance Navarro MD LAB BLOOD ORDER ONLY Final R esult Performing Organization Address City/[facility]/ZIP Co de Phone Number [facility]
[address] [place] [address], [place] [phone] * Lavender Top (08/24/2025 12:59 PM EDT) Extra Tube hold for add-on 08/24/2025 1:15 PM EDT [facility] Comment:Auto resulted Blood Venipuncture / Unknown 08/24/2025 12:59 PM EDT 08/24/2025 1:03 PM EDT Lance Navarro MD LAB BLOOD ORDER ONLY Final R esult Performing Organization Address City/[facility]/ZIP Co de Phone Number [facility]
[address] [place] [address], * Green Top (Gel) (08/24/2025 12:59 PM EDT) Extra Tube Hold for add-ons. 08/24/2025 1:15 PM EDT [facility] Comment:Auto resulted. Blood Venipuncture / Unknown 08/24/2025 12:59 PM EDT 08/24/2025 1:03 PM EDT Lance Navarro MD LAB BLOOD ORDER ONLY Final R esult Performing Organization Address City/[facility]/ZIP Co de Phone Number [facility]
[address] [place] [address], * High Sensitivity Troponin T (08/24/2025 12:59 PM EDT) HS Troponin T <6 <22 ng/L 08/24/2025 1:32 PM EDT [facility] Blood Venipuncture / Unknown 08/24/2025 12:59 PM EDT 08/24/2025 1:03 PM EDT Narrative [facility] - 08/24/2025 1:32 PM EDT High Sensitive Troponin T Reference Range: <14.0 ng/L- Negative Female for AMI <22.0 ng/L- Negative Male for AMI >=14 - Abnormal Female indicating possible myocardial injury. >=22 - Abnormal Male indicating possible myocardial injury. Clinicians would have to utilize clinical acumen, EKG, Troponin, and serial changes to determine if it is an Acute Myocardial Infarction or myocardial injury due to an underlying chronic condition. us Lance Navarro MD LAB BLOOD ORDERABLES Final R esult [facility]
[address] [place] [address], [place] [phone] * (ABNORMAL) Comprehensive Metabolic Panel (08/24/2025 12:59 PM EDT) Glucose 114(H) 65 - 99 mg/dL 08/24/2025 1:32 PM EDT [facility] BUN 12.0 6.0 - 20.0 mg/dL 08/24/2025 1:32 PM EDT [facility] Creatinine 0.97 0.76 - 1.27 mg/dL 08/24/2025 1:32 PM EDT [facility] Sodium 138 136 - 145 mmol/L 08/24/2025 1:32 PM EDT [facility] Potassium 4.0 3.5 - 5.2 mmol/L 08/24/2025 1:32 PM EDT [facility] Chloride 100 98 - 107 mmol/L 08/24/2025 1:32 PM EDT [facility] CO2 23.5 22.0 - 29.0 mmol/L 08/24/2025 1:32 PM EDT [facility] Calcium 9.8 8.6 - 10.5 mg/dL 08/24/2025 1:32 PM EDT [facility] Total Protein 8.1 6.0 - 8.5 g/dL 08/24/2025 1:32 PM EDT [facility] Albumin 4.5 3.5 - 5.2 g/dL 08/24/2025 1:32 PM EDT [facility] ALT (SGPT) 23 1 - 41 U/L 08/24/2025 1:32 PM EDT [facility] AST (SGOT) 19 1 - 40 U/L 08/24/2025 1:32 PM EDT [facility] Alkaline Phosphatase 67 39 - 117 U/L 08/24/2025 1:32 PM EDT [facility] Total Bilirubin 0.6 0.0 - 1.2 mg/dL 08/24/2025 1:32 PM EDT [facility] Globulin 3.6 gm/dL 08/24/2025 1:32 PM EDT [facility] A/G Ratio 1.3 g/dL 08/24/2025 1:32 PM EDT [facility] BUN/Creatinine Ratio 12.4 7.0 - 25.0 08/24/2025 1:32 PM EDT [facility] Anion Gap 14.5 5.0 - 15.0 mmol/L 08/24/2025 1:32 PM EDT [facility] eGFR 103.1 >60.0 mL/min/1.7 3 08/24/2025 1:32 PM EDT [facility] Blood Venipuncture / Unknown 08/24/2025 12:59 PM EDT 08/24/2025 1:03 PM EDT Narrative [facility] - 08/24/2025 1:32 PM EDT GFR Categories in Chronic Kidney Disease (CKD) GFR Category GFR (mL/min/1.73) Interpretation G1 90 or greater Normal or high (1) G2 60-89 Mild decrease (1) G3a 45-59 Mild to moderate decrease G3b 30-44 Moderate to severe decrease G4 15-29 Severe decrease G5 14 or less Kidney failure (1)In the absence of evidence of kidney disease, neither GFR category G1 or G2 fulfill the criteria for CKD. eGFR calculation 2020 CKD-EPI creatinine equation, which does not include race as a factor us Lance Navarro MD LAB BLOOD ORDERABLES Final R esult [facility]
[address] [place] [address], * CT Outside Films (12/20/2021 12:00 AM EST) Narrative SYSTEMGENERATED, DOCUMENTATION - 08/25/2025 11:27 AM EDT This procedure was auto-finalized with no dictation required. us [employer] Outside Films IMG CT ORDERABLES Final Re sult * CT Outside Films (08/03/2021 12:00 AM EDT) Narrative SYSTEMGENERATED, DOCUMENTATION - 08/25/2025 11:28 AM EDT This procedure was auto-finalized with no dictation required. us [employer] IMG CT ORDERABLES Final Re sult documented in this encounter Visit Diagnoses Diagnosis Pulmonary embolism- Primary Other pulmonary embolism and infarction Acute pulmonary embolism without acute cor pulmonale, unspecified pulmonary embolism type Tachycardia Unspecified tachycardia Hyperglycemia Other abnormal glucose Family history of blood clots History of COVID-19 HTN (hypertension) Unspecified essential hypertension Class 2 severe obesity with serious comorbidity in adult documented in this encounter Admitting Diagnoses Diagnosis Pulmonary embolism Other pulmonary embolism and infarction documented in this encounter Administered Medications Inactive Administered Medications - up to 3 most recent administrations Medication Order MAR Action Action Date Dose Rate Site acetaminophen (TYLENOL) 160 MG/5ML oral solution 650 mg 650 mg, Oral, Every 4 Hours PRN, Mild Pain, Starting on Sun08/24/25 at 1812, If given for fever, use fever parameter: fever greater than 100.4 F Based on patient request - if ordered for moderate or severe pain, provider allows for administration of a medication prescribed for a lower pain scale. Do not exceed 4 grams of acetaminophen in a 24 hr period. Max dose of 2gm for AST/ALT greater than 120 units/L. If given for pain, use the following pain scale: Mild Pain = Pain Score of 1-3, CPOT 1-2 Moderate Pain = Pain Score of 4-6, CPOT 3-4 Severe Pain = Pain Score of 7-10, CPOT 5-8 acetaminophen (TYLENOL) suppository 650 mg 650 mg, Rectal, Every 4 Hours PRN, Mild Pain, Starting on 08/24/25 at 1812, If given for fever, use fever parameter: fever greater than 100.4 F Based on patient request - if ordered for moderate or severe pain, provider allows for administration of a medication prescribed for a lower pain scale. Do not exceed 4 grams of acetaminophen in a 24 hr period. Max dose of 2gm for AST/ALT greater than 120 units/L. If given for pain, use the following pain scale: Mild Pain = Pain Score of 1-3, CPOT 1-2 Moderate Pain = Pain Score of 4-6, CPOT 3-4 Severe Pain = Pain Score of 7-10, CPOT 5-8 acetaminophen (TYLENOL) tablet 650 mg 650 mg, Oral, Every 4 Hours PRN, Mild Pain, Starting on Sun08/24/25 at 1812, If given for fever, use fever parameter: fever greater than 100.4 F Based on patient request - if ordered for moderate or severe pain, provider allows for administration of a medication prescribed for a lower pain scale. Do not exceed 4 grams of acetaminophen in a 24 hr period. Max dose of 2gm for AST/ALT greater than 120 units/L. If given for pain, use the following pain scale: Mild Pain = Pain Score of 1-3, CPOT 1-2 Moderate Pain = Pain Score of 4-6, CPOT 3-4 Severe Pain = Pain Score of 7-10, CPOT 5-8 aspirin EC tablet 81 mg 81 mg, Oral, Daily, First dose on Sun08/25/25 at 1145, Do not crush or chew the capsules or tablets. The drug may not work as designed if the capsule or tablet is crushed or chewed. Swallow whole. Do not exceed 4 grams of aspirin in a 24 hr period. If given for pain, use the following pain scale: Mild Pain = Pain Score of 1-3, CPOT 1-2 Moderate Pain = Pain Score of 4-6, CPOT 3-4 Severe Pain = Pain Score of 7-10, CPOT 5-8 Given 08/25/2025 12:17 PM EDT 81 mg atorvastatin (LIPITOR) tablet 10 mg 10 mg, Oral, Nightly, First dose (after last modification) on Sun08/25/25 at 2100, Avoid grapefruit juice. diphenhydrAMINE (BENADRYL) capsule 25 mg 25 mg, Oral, Nightly PRN, Sleep, Starting on Sun08/24/25 at 2145, Caution: Look alike/sound alike drug alert. This med may be ordered in other forms and routes. Before giving verify the last time the drug was given by any route/form. Given 08/24/2025 10:01 PM EDT 25 mg enoxaparin sodium (LOVENOX) syringe 135 mg 135 mg (rounded from 131 mg = 1 mg/kg 131 kg), Subcutaneous, Every 12 Hours, First dose on Sun08/24/25 at 2000, Note concentration. Do not combine this with any other enoxaparin concentration., Indications: DVT/PE (active thrombosis)Indications:DVT /PE (active thrombosis) Given 08/25/2025 8:31 AM EDT 135 mg Right Lower Abdomen Given 08/24/2025 8:52 PM EDT 135 mg Ri ght Lower Abdomen iopamidol (ISOVUE-370) 76 % injection 100 mL 100 mL, Intravenous, Once in Imaging, On Sun08/24/25 at 1357, For 1 dose Given 08/24/2025 1:41 PM EDT 100 mL labetalol (NORMODYNE,TRANDATE) injection 10 mg 10 mg, Intravenous, Once As Needed, High Blood Pressure, SBP > 180, Starting on Sun08/24/25 at 1327, For 1 dose, As ordered Give IV Push over 2 minutes. ondansetron (ZOFRAN) injection 4 mg 4 mg, Intravenous, Every 6 Hours PRN, Nausea, Vomiting, Starting on Sun08/24/25 at 1813, If BOTH ondansetron (ZOFRAN) and promethazine (PHENERGAN) are ordered use ondansetron first and THEN promethazine IF ondansetron is ineffective. ondansetron ODT (ZOFRAN-ODT) disintegrating tablet 4 mg 4 mg, Oral, Every 6 Hours PRN, Nausea, Vomiting, Starting on Sun08/24/25 at 1813, If BOTH ondansetron (ZOFRAN) and promethazine (PHENERGAN) are ordered use ondansetron first and THEN promethazine IF ondansetron is ineffective. Place on tongue and allow to dissolve. sodium chloride 0.9 % flush 10 mL 10 mL, Intravenous, As Needed, Line Care, Starting on Sun08/24/25 at 1255 sodium chloride 0.9 % flush 10 mL 10 mL, Intravenous, Every 12 Hours Scheduled, First dose on Sun08/24/25 at 2100 Given 08/25/2025 8:12 AM EDT 10 mL Given 08/24/2025 8:53 PM EDT 10 mL documented in this encounter Active and Recently Administered Medications Times are shown in EDT. Scheduled Medication Order 08/23/2025 08/24/2025 08/25/2025 aspirin EC tablet 81 mg 81 mg, Oral, Daily, First dose on Sun08/25/25 at 1145, Do not crush or chew the capsules or tablets. The drug may not work as designed if the capsule or tablet is crushed or chewed. Swallow whole. Do not exceed 4 grams of aspirin in a 24 hr period. If given for pain, use the following pain scale: Mild Pain = Pain Score of 1-3, CPOT 1-2 Moderate Pain = Pain Score of 4-6, CPOT 3-4 Severe Pain = Pain Score of 7-10, CPOT 5-8 1217 (Given - Provid er: Vishal Weldon RN) atorvastatin (LIPITOR) tablet 10 mg 10 mg, Oral, Nightly, First dose (after last modification) on Sun08/25/25 at 2100, Avoid grapefruit juice. enoxaparin sodium (LOVENOX) syringe 135 mg 135 mg (rounded from 131 mg = 1 mg/kg 131 kg), Subcutaneous, Every 12 Hours, First dose on Sun08/24/25 at 2000, Note concentration. Do not combine this with any other enoxaparin concentration., Indications: DVT/PE (active thrombosis) 2051 (Given - Provider: Bharati Bernal RN) 0831 (Given - Provider: Vishal Weldon RN) iopamidol (ISOVUE-370) 76 % injection 100 mL (COMPLETED) 100 mL, Intravenous, Once in Imaging, On Sun08/24/25 at 1357, For 1 dose 1341 (Given - Provider: Herb Marcum) sodium chloride 0.9 % flush 10 mL 10 mL, Intravenous, Every 12 Hours Scheduled, First dose on Sun08/24/25 at 2100 205 (Given - Provider: Bharati Bernal RN) 0812 (Given - Provider: Vishal Weldon RN) PRN Medication Order 08/23/2025 08/24/2025 08/25/2025 acetaminophen (TYLENOL) 160 MG/5ML oral solution 650 mg(Linked Group 1) 650 mg, Oral, Every 4 Hours PRN, Mild Pain, Starting on Sun08/24/25 at 1812, If given for fever, use fever parameter: fever greater than 100.4 F Based on patient request - if ordered for moderate or severe pain, provider allows for administration of a medication prescribed for a lower pain scale. Do not exceed 4 grams of acetaminophen in a 24 hr period. Max dose of 2gm for AST/ALT greater than 120 units/L. If given for pain, use the following pain scale: Mild Pain = Pain Score of 1-3, CPOT 1-2 Moderate Pain = Pain Score of 4-6, CPOT 3-4 Severe Pain = Pain Score of 7-10, CPOT 5-8 acetaminophen (TYLENOL) suppository 650 mg(Linked Group 1) 650 mg, Rectal, Every 4 Hours PRN, Mild Pain, Starting on Sun08/24/25 at 1812, If given for fever, use fever parameter: fever greater than 100.4 F Based on patient request - if ordered for moderate or severe pain, provider allows for administration of a medication prescribed for a lower pain scale. Do not exceed 4 grams of acetaminophen in a 24 hr period. Max dose of 2gm for AST/ALT greater than 120 units/L. If given for pain, use the following pain scale: Mild Pain = Pain Score of 1-3, CPOT 1-2 Moderate Pain = Pain Score of 4-6, CPOT 3-4 Severe Pain = Pain Score of 7-10, CPOT 5-8 acetaminophen (TYLENOL) tablet 650 mg(Linked Group 1) 650 mg, Oral, Every 4 Hours PRN, Mild Pain, Starting on Sun08/24/25 at 1812, If given for fever, use fever parameter: fever greater than 100.4 F Based on patient request - if ordered for moderate or severe pain, provider allows for administration of a medication prescribed for a lower pain scale. Do not exceed 4 grams of acetaminophen in a 24 hr period. Max dose of 2gm for AST/ALT greater than 120 units/L. If given for pain, use the following pain scale: Mild Pain = Pain Score of 1-3, CPOT 1-2 Moderate Pain = Pain Score of 4-6, CPOT 3-4 Severe Pain = Pain Score of 7-10, CPOT 5-8 Calcium Replacement - Follow Nurse / BPA Driven Protocol Open Order & Select [facility] Electrolyte Replacement Protocol Algorithm to View Details diphenhydrAMINE (BENADRYL) capsule 25 mg 25 mg, Oral, Nightly PRN, Sleep, Starting on Sun08/24/25 at 2145, Caution: Look alike/sound alike drug alert. This med may be ordered in other forms and routes. Before giving verify the last time the drug was given by any route/form. 2200 (Given - Provider: Bharati Bernal, ROSE) labetalol (NORMODYNE,TRANDATE) injection 10 mg 10 mg, Intravenous, Once As Needed, High Blood Pressure, SBP > 180, Starting on Sun08/24/25 at 1327, For 1 dose, As ordered Give IV Push over 2 minutes. 1820 (Not Given - Provider: Sada Schulz RN - Reason: Order parameters not met) Magnesium Standard Dose Replacement - Follow Nurse / BPA Driven Protocol Open Order & Select [facility] Electrolyte Replacement Protocol Algorithm to View Details nitroglycerin (NITROSTAT) SL tablet 0.4 mg 0.4 mg, Sublingual, Every 5 Minutes PRN, Chest Pain, Starting on Sun08/24/25 at 1812, If Pain Unrelieved After 3 Doses Notify MD May administer up to 3 doses per episode. Hold if SBP less than 100. ondansetron (ZOFRAN) injection 4 mg(Linked Group 2) 4 mg, Intravenous, Every 6 Hours PRN, Nausea, Vomiting, Starting on Sun08/24/25 at 1813, If BOTH ondansetron (ZOFRAN) and promethazine (PHENERGAN) are ordered use ondansetron first and THEN promethazine IF ondansetron is ineffective. ondansetron ODT (ZOFRAN-ODT) disintegrating tablet 4 mg(Linked Group 2) 4 mg, Oral, Every 6 Hours PRN, Nausea, Vomiting, Starting on Sun08/24/25 at 1813, If BOTH ondansetron (ZOFRAN) and promethazine (PHENERGAN) are ordered use ondansetron first and THEN promethazine IF ondansetron is ineffective. Place on tongue and allow to dissolve. Phosphorus Replacement - Follow Nurse / BPA Driven Protocol Open Order & Select [facility] Electrolyte Replacement Protocol Algorithm to View Details Potassium Replacement - Follow Nurse / BPA Driven Protocol Open Order & Select S Electrolyte Replacement Protocol Algorithm to View Details sodium chloride 0.9 % flush 10 mL 10 mL, Intravenous, As Needed, Line Care, Starting on Sun08/24/25 at 1255 sodium chloride 0.9 % flush 10 mL 10 mL, Intravenous, As Needed, Line Care, Starting on Sun08/24/25 at 1811 sodium chloride 0.9 % infusion 40 mL 40 mL, Intravenous, at 100 mL/hr, As Needed, Line Care, Starting on Sun08/24/25 at 1811, Following administration of an IV intermittent medication, flush line with 40mL NS at 100mL/hr. Linked Groups Order Group 1: acetaminophen (TYLENOL) tablet 650 mgJump to med 650 mg, Oral, Every 4 Hours PRN, Mild Pain, Starting on Sun08/24/25 at 1812, If given for fever, use fever parameter: fever greater than 100.4 F Based on patient request - if ordered for moderate or severe pain, provider allows for administration of a medication prescribed for a lower pain scale. Do not exceed 4 grams of acetaminophen in a 24 hr period. Max dose of 2gm for AST/ALT greater than 120 units/L. If given for pain, use the following pain scale: Mild Pain = Pain Score of 1-3, CPOT 1-2 Moderate Pain = Pain Score of 4-6, CPOT 3-4 Severe Pain = Pain Score of 7-10, CPOT 5-8 Or acetaminophen (TYLENOL) 160 MG/5ML oral solution 650 mgJump to med 650 mg, Oral, Every 4 Hours PRN, Mild Pain, Starting on Sun08/24/25 at 1812, If given for fever, use fever parameter: fever greater than 100.4 F Based on patient request - if ordered for moderate or severe pain, provider allows for administration of a medication prescribed for a lower pain scale. Do not exceed 4 grams of acetaminophen in a 24 hr period. Max dose of 2gm for AST/ALT greater than 120 units/L. If given for pain, use the following pain scale: Mild Pain = Pain Score of 1-3, CPOT 1-2 Moderate Pain = Pain Score of 4-6, CPOT 3-4 Severe Pain = Pain Score of 7-10, CPOT 5-8 Or acetaminophen (TYLENOL) suppository 650 mgJump to med 650 mg, Rectal, Every 4 Hours PRN, Mild Pain, Starting on Sun08/24/25 at 1812, If given for fever, use fever parameter: fever greater than 100.4 F Based on patient request - if ordered for moderate or severe pain, provider allows for administration of a medication prescribed for a lower pain scale. Do not exceed 4 grams of acetaminophen in a 24 hr period. Max dose of 2gm for AST/ALT greater than 120 units/L. If given for pain, use the following pain scale: Mild Pain = Pain Score of 1-3, CPOT 1-2 Moderate Pain = Pain Score of 4-6, CPOT 3-4 Severe Pain = Pain Score of 7-10, CPOT 5-8 Group 2: ondansetron ODT (ZOFRAN-ODT) disintegrating tablet 4 mgJump to med 4 mg, Oral, Every 6 Hours PRN, Nausea, Vomiting, Starting on 08/24/25 at 1813, If BOTH ondansetron (ZOFRAN) and promethazine (PHENERGAN) are ordered use ondansetron first and THEN promethazine IF ondansetron is ineffective. Place on tongue and allow to dissolve. Or ondansetron (ZOFRAN) injection 4 mgJump to med 4 mg, Intravenous, Every 6 Hours PRN, Nausea, Vomiting, Starting on Sun08/24/25 at 1813, If BOTH ondansetron (ZOFRAN) and promethazine (PHENERGAN) are ordered use ondansetron first and THEN promethazine IF ondansetron is ineffective. documented in this encounter Additional Health Concerns Infection Onset Date Last Indicated Resolved Time COVID (confirmed) 11/16/2021 11/16/2021 08/24/2025 1:58 PM EDT documented as of this encounter Care Teams Runner Out Relationship Specialty Start Date End Date Provider, [place] [address] PCP - General 08/24/25 08/25/25 documented as of this encounter
--- OUTSIDE RECORDS SUMMARY | 2025-09-04 04:59 | XMS_ITS | Continuity of Care Document ---
Author Organization [facility] [employer] Phone Care Team Providers Care Nutritional Health Coach Name Role Phone AMAN HAWLEY Unavailable Unavailable AMAN HAWLEY Admitting Unavailable REUBEN ALFREDO Primary Care AMAN HAWLEY Primary Attending Unavailable ALLERGIES AND ADVERSE REACTIONS ALLERGIES AND ADVERSE REACTIONS Code System Allergy Substance Adverse Reaction Date Reaction (Severity) Comment Status Reported By Updated By [id number] SNOMED CT Sulfa Antibiotics Adverse reaction to substance Not Specified active [id number] on September 02, 2025 4:49:16 PM [place] Shrimp (Free Text Allergy) Adverse reaction to substance Not Specified active [id number] on September 02, 2025 4:49:16 PM [facility] MEDICATIONS HOME MEDICATIONS Status RXNORM NDC Medication Dose Route Frequency Dates Comments Reported By Updated By Active [id number] Xarelto 20 mg tablet 1.0 TAB ORAL DAILY Last Dose: [id number] on September 02, 2025 4:49:15 PM [facility] DISCHARGE MEDICATIONS Status RXNORM NDC Medication Dose Route Frequency Dates Dis pense Data Comments Physician Updated By No Discharge Medication Info rmation Available INPATIENT MEDICATIONS Status RXNORM NDC Medication Dose Route Frequency Rat e Quantity Dates Indication Dispense Data Comments Physician Updated By No Inpatient Medication Info rmation Available SOCIAL HISTORY SOCIAL HISTORY - Smoking Status SNOMED-CT Social History Element Description Effective Dates Offered Cessation Comment Updated By [id number] Current Tobacco smoking status Never Smoked [id number] on September 02, 2025 4:49:40 PM [facility] SOCIAL HISTORY - Gender Sex: Male SOCIAL HISTORY - Status : status i nformation is not available Intention in Next Year: intention information is not available SOCIAL HISTORY - Assessments Code System Description Status Date Value of Assessment Updated By Comment Assessment Information is no t available SOCIAL HISTORY - Shawnee Affiliation Shawnee information is not av ailable SOCIAL HISTORY - Legal Sex Legal Sex information is not available SOCIAL HISTORY - Sexual Behavior Sexual Orientation Gender Identity SNOMED-CT Description SNO MED -CT Description Activity Level No of Partners Partner Type UpdatedBy Information is not available SOCIAL HISTORY - Occupation Occupation information is no t available HEALTH CONCERNS Problems Concern Status Health Concern problem infor mation not available. Smoking Status Status Years Used Consumed packs p er day Health Concern smoking histo ry information not available. Family History Concern Status Health Concern family histor y information not available. ENCOUNTERS ENCOUNTER INFORMATION Reason for Visit LEG SWELLING Admission September 02, 2025 4:42:[address] [address] Discharge September 02, 2025 5:17:00 PM [facility] DISCHARGED TO HOME OR SELF CARE ENCOUNTER DIAGNOSES Notes information is not matthew ilable. Code System Diagnosis Onset Date Diagnosis information is not available. ABSTRACT DIAGNOSES Code System Diagnosis Updated By Abatement Date M79.89 ICD10 OTHER SPECIFIED SOFT TISSUE DISORDERS [id number] on September 04, 2025 9:59:13 AM [facility] M79.652 ICD10 PAIN IN LEFT THIGH [id number] o n September 04, 2025 9:59:13 AM [facility] M25.562 ICD10 PAIN IN LEFT KNEE [id number] on September 04, 2025 9:59:13 AM [facility] M79.662 ICD10 PAIN IN LEFT LOWER LEG [id number] on September 04, 2025 9:59:13 AM [facility] M79.662 ICD10 PAIN IN LEFT LOWER LEG [id number] on September 04, 2025 9:59:13 AM [facility] Z86.711 ICD10 PERSONAL HISTORY OF PULMONARY EMBOLISM [id number] on September 04, 2025 9:59:13 AM [facility] Z79.01 ICD10 PHARMACOVIGILANCE SPECIALIST (CURRE NT) USE OF ANTICOAGULANTS [id number] on September 04, 2025 9:59:13 AM [facility] Z88.2 ICD10 ALLERGY STATUS TO SULFONAMID ES [id number] on September 04, 2025 9:59:13 AM [facility] CARE TEAM Care Nutritional Health Coach Role AMAN HAWLEY Referring AMAN HAWLEY Admitting REUBEN ALFREDO Primary Care AMAN HAWLEY Primary Attending CARE TEAM CARE ldr rn Role on Team Location Telecom Status Start Date End Carlo e Updated By MARLEEN Zuniga MD PHY Referring normal September 02, 2025 5:08:23 PM UTC September 02, 2025 5:08:23 PM UTC [id number] on September 02, 2025 5:08:23 PM UTC MARLEEN Zuniga MD, MD Referring normal September 02, 2025 5:08:23 PM UTC September 02, 2025 5:17:00 PM UTC [id number] on September 02, 2025 5:08:23 PM UTC MARLEEN Zuniga MD PHY Attending normal September 02, 2025 5:08:23 PM UTC September 02, 2025 5:08:23 PM UTC [id number] on September 02, 2025 5:08:23 PM UTC MARLEEN Zuniga MD, MD Attending normal September 02, 2025 5:08:23 PM UTC September 02, 2025 5:17:00 PM UTC [id number] on September 02, 2025 5:08:23 PM UTC MARLEEN Zuniga MD PHY Admitting normal September 02, 2025 5:08:23 PM UTC September 02, 2025 5:08:23 PM UTC [id number] on September 02, 2025 5:08:23 PM UTC MARLEEN Zuniga MD, MD Admitting normal September 02, 2025 5:08:23 PM UTC September 02, 2025 5:17:00 PM UTC [id number] on September 02, 2025 5:08:23 PM UTC JUNI ALEXIS MD PHY PCP normal September 02, 2025 4:42:24 PM UTC September 02, 2025 5:17:00 PM UTC [id number] on September 02, 2025 5:08:23 PM UTC
--- OUTSIDE RECORDS SUMMARY | 2025-09-09 06:40 | XMS_ITS | Continuity of Care Document ---
Author Organization [facility] Phone Care Team Providers Care Behavioral Scientist Name Role Phone REUBEN ALFREDO Admitting REUBEN ALFREDO Primary Care REUBEN ALFREDO Unavailable REUBEN ALFREDO Primary Attending ALLERGIES AND ADVERSE REACTIONS ALLERGIES AND ADVERSE REACTIONS Code System Allergy Substance Adverse Reaction Date Reaction (Severity) Comment Status Reported By Updated [place] [id number] SNOMED CT Sulfa Antibiotics Adverse reaction to substance Not Specified active [id number] on September 02, 2025 4:49:16 PM [facility] Shrimp (Free Text Allergy) Adverse reaction to substance Not Specified active [id number] on September 02, 2025 4:49:16 PM [place] RESULTS Patient: SUSAN CANO HOMER Date of : 1985 10 LABORATORY RESULTS Information is not available LABORATORY NARRATIVE RESULTS Information is not available RADIOLOGY RESULTS ORDER 100: VENOUS DUPLEX LOW ER BILATERAL (LOINC: 21304-5) ORDER DATE: September 07, 2025 3:22:00 PM [place] PERFORMING LAB: [address] [id number] Final Result Date: September 07, 2025 4:05:[address] [place] [address] Name: RACHAEL DAVIS Exam Date: 09/07/2025 : 1985 Age 39 years Gender: M Physician: REUBEN ALFREDO Facility: [facility] Facility HSV: Outpatient Exam: VENOUS DUPLEX LOWER BILATERAL PROCEDURE: Duplex ultrasound of the bilateral lower extremities CLINICAL INDICATION: swelling. TECHNIQUE: Duplex ultrasound of the bilateral lower extremities with spectral analysis and color flow. FINDINGS: RIGHT LOWER EXTREMITY: Common femoral vein, superficial femoral vein (proximal, mid and distal segments), and popliteal vein are patent with normal spectral Doppler waveform and compressibility. Patent anterior tibial vein, posterior tibial vein and peroneal vein. LEFT LOWER EXTREMITY: Common femoral vein, superficial femoral vein (proximal, mid and distal segments), and popliteal vein are patent with normal spectral Doppler waveform and compressibility. Patent anterior tibial vein, posterior tibial vein and peroneal vein. IMPRESSION: No sonographic evidence of DVT in the bilateral lower extremities. Electronically signed by: Lyubov Mas MD 09/07/2025 11:30 AM [facility] Dictated By: YLUBOV MAS Transcribed By: Transcribed On: 09/07/2025 11:05 AM Electronically signed by: LYUBOV MAS 09/07/2025 Thank you for referring RACHAEL DAVIS to [facility]. Legally authenticated by TG DAVIS MD 2025-09-07 11:05:18 PATHOLOGY NARRATIVE RESULTS Information is not available MICROBIOLOGY RESULTS No Micro Labs/Results Exist for Patient BLOOD ADMIN RESULTS Information is not available MEDICATIONS HOME MEDICATIONS Status RXNORM NDC Medication Dose Route Frequency Dates Comments Reported By Updated By Drug Treatment Unknown DISCHARGE MEDICATIONS Status RXNORM NDC Medication Dose [...] Effective Dates Offered Cessation Comment Updated By [id number] Historical Tobacco smoking status Never Smoked [id number] on September 02, 2025 4:49:40 PM [facility] SOCIAL HISTORY - Gender Sex: Male SOCIAL HISTORY - Status : status i nformation is not available Intention in Next Year: intention information is not available SOCIAL HISTORY - Assessments Code System Description Status Date Value of Assessment Updated By Comment Assessment Information is no t available SOCIAL HISTORY - [place] Affiliation [place] information is not av ailable SOCIAL HISTORY [...] available. ENCOUNTERS ENCOUNTER INFORMATION Reason for Visit ULS VENOUS DUPLEX Admission September 07, 2025 3:12:[address] [address] Discharge September 07, 2025 3:12:00 PM [facility] DISCHARGED TO HOME OR SELF CARE ENCOUNTER DIAGNOSES Notes information is not matthew ilable. Code System Diagnosis Onset Date Diagnosis information is not available. ABSTRACT DIAGNOSES Code System Diagnosis Updated By Abatement Date M79.89 ICD10 OTHER SPECIFIED SOFT TISSUE DISORDERS [id number] on September 09, 2025 11:39:54 AM [facility] M79.606 ICD10 PAIN IN LEG, UNSPECIFIED ILX [id number] on September 09, 2025 11:39:54 AM [facility] M79.89 ICD10 OTHER SPECIFIED SOFT TISSUE DISORDERS [id number] on September 09, 2025 11:39:54 AM [facility] M79.606 ICD10 PAIN IN LEG, UNSPECIFIED ILX [id number] on September 09, 2025 11:39:54 AM [facility] CARE TEAM Care Behavioral Scientist Role REUBEN ALFREDO Admitting REUBEN ALFREDO Primary Care REUBEN ALFREDO Referring REUBEN ALFREDO Primary Attending CARE TEAM CARE public health sanitarian technician Role on Team Location Telecom Status Start Date End Carlo e Updated By JUNI MOHAN PCP normal September 04, 2025 4:19:48 PM [facility] September 07, 2025 3:12:00 PM [facility] [id number] on September 04, 2025 4:19:48 PM [facility] JUNI MOHAN Referring normal September 04, 2025 4:19:48 PM [facility] September 07, 2025 3:12:00 PM [facility] [id number] on September 04, 2025 4:19:48 PM [facility] JUNI MOHAN Attending normal September 04, 2025 4:19:48 PM [facility] September 07, 2025 3:12:00 PM [facility] [id number] on September 04, 2025 4:19:48 PM [facility] JUNI MOHAN Admitting normal September 04, 2025 4:19:48 PM [facility] September 07, 2025 3:12:00 PM [facility] [id number] on September 04, 2025 4:19:48 PM [facility]
--- OUTSIDE RECORDS SUMMARY | 2025-09-30 08:35 | XMS_ITS | Encounter Summary ---
Author Organization [facility] Address [address] [place] [address] Care Team Providers Care Lift Team Technician Name Role Phone Benito Snyder MD Primary Care Provider [phone] Reason for Visit * Reason Onset Date Comments Results 08/26/2025 Encounter Details Date Type Department Care Team (Late st Contact Info) Description 08/26/2025 Results Follow-Up [facility] [address] [place] [address] Dania Baez MD [address] [facility] [address] [place], [place] [id number] Results Social History Tobacco Use Types Packs/Day Years [...] on file documented as of this encounter Miscellaneous Notes * Telephone Encounter - Dania Baez MD - 08/26/2025 8:20 AM EDT Tried calling the patient however no answer. Called his spouse Tanesha Wills and discussed ferritin results with her. Discussed he will benefit from following with a cloth measurer machine oncologist locally. She verbalized understanding and was in agreement. She reported patient has a hospital follow-up appointment with his primary care this Sunday and she will discuss the results with his primary care. documented in this encounter Plan of Treatment Not on file documented as of this encounter Visit Diagnoses Not on filedocumented in this encounter Care Teams Lift Team Technician Relationship Specialty Start Date End Date Benito Snyder MD [address] [place], [place] [address] PCP - General Family Medicine 08/26/25 documented as of this encounter
--- OUTSIDE RECORDS SUMMARY | 2025-09-30 08:35 | XMS_ITS | Encounter Summary ---
Author Organization [facility] Address [address] [place] [address] Care Team Providers Care Supervisor Special Services Name Role Phone Benito Snyder MD Primary Care Provider [phone] Reason for Visit * Reason Onset Date Comments DR PRADHAN-RETURN MISSED CALL 08/26/2025 Encounter Details Date Type Department Care Team (Late st Contact Info) Description 08/26/2025 Telephone [facility] HEMATOLOGY & [facility]COLOGY [address] [employer] [address] [address] Dania Pradhan MD [address] [employer] [facility] [address] [place] [address] DR PRADHAN-RETURN MISSED CALL Social History Tobacco Use Types Packs/Day Years [...] encounter Miscellaneous Notes * Telephone Encounter - Marybeth Matias RN - 08/26/2025 8:35 AM EDT Informed that Dr Pradhan had spoken to his about his iron levels and that she would recommend following up with a cotton sampler in his area and he does have a hospital follow up with his primary care and they will go over his lab levels with him at that time .verbalized understanding; * Telephone Encounter - Ty Morin RegSched Rep - 08/26/2025 8:25 AM EDT Hub staff attempted to follow warm transfer process and was unsuccessful Caller: Misael Wills Relationship to patient: Self Best call back number: [phone] Patient is needing: RETURN CALL TO DR PRADHAN documented in this encounter Plan of Treatment Not on file documented as of this encounter Visit Diagnoses Not on filedocumented in this encounter Care Teams Supervisor Special Services Relationship Specialty Start Date End Date Benito Snyder MD [address] [place] [address] PCP - General Family Medicine 08/26/25 documented as of this encounter
--- OUTSIDE RECORDS SUMMARY | 2025-09-30 08:35 | XMS_ITS | Clinical Summary ---
Author Organization [facility] Address [address] [place] [address] Care Team Providers Care Cable Swager Name Role Phone Rashaad Donahue MD Primary Care Provider Allergies Active Allergy Reactions Criticality Noted Date Comments Shellfish Allergy Anaphylaxis High 05/13/2021 Sulfa Drugs Unknown - Patient st ates they do not know rxn details Low 05/13/2021 Medications cyclobenzaprine (Flexeril) 10 MG tablet Take 1 tablet (10 mg) by mouth daily at bedtime as needed for 14 days. 14 tablet 01/01/2025 Active rivaroxaban (Xarelto) 20 MG tabletIndication s:Pulmonary embolism, unspecified chronicity, unspecified pulmonary embolism type, unspecified whether acute cor pulmonale present (CMS/HCC) Take 1 tablet (20 mg) by mouth daily. Take with food. 90 tablet 3 01/01/2025 Active Hospital, Clinic, or Other Facility Administered Medication Ordered Dose Route Frequency Start Date End Date Status Tdap (BoostRIX) 5-2.5-18.5 LF-MCG/0.5 vaccine 0.5 mLIndications:Routine general medical examination at a health care facility 0.5 mL IM Once 06/07/2022 Acti ve Active Problems Problem Noted Date Diagnosed Date Sciatica of left side 01/01/2025 Routine general medical exam ination at a health care facility 06/07/2022 Assessment & Plan (07/16/2023 1:48 PM EDT): -Declined flu and TDaP booster today. No specific concerns elicited -Given obesity will check A1C, lipids and hepatic function panel Severe obesity (BMI 35.0-39.9) with comorbidity 12/19/2021 Assessment & Plan (01/29/2024 4:18 PM EDT): -Regained weight; planning to return to the gym -Counseled on lifestyle modifications -discussed pharmacotherapy w/ GLP 1 class and patient would like to defer for now and focus on liestyle modifications -Will FU in 3 months and reevaluate weight and BP Assessment & Plan (07/16/2023 1:47 PM EDT): -Improving. Has lost approx 10 lbs over past few months w/ improved diet emphasiszing whole foods and more activity. -Encouraged to continue lifestyle modifications; can consider pharmacotherapy w/ plateau in weight loss. Pulmonary embolism 05/14/2021 Assessment & Plan (01/29/2024 4:19 PM EDT): -Hx of unprovoked BL PE; notes that these events occurred ISO a covid diagnosis which may be contributory to the PE. -Taking Xarelto w/ no issues. No c/f bleeding. Will continue -Monitor for signs of CTEPH and consider echo/R heart cath if concerned in future. No c/f this presently. Assessment & Plan (07/16/2023 1:46 PM EDT): -Hx of unprovoked BL PE; notes that these events occurred ISO a covid diagnosis which may be contributory to the PE. -Taking Xarelto w/ no issues. No c/f bleeding. Will continue -Monitor for signs of CTEPH and consider echo/R heart cath if concerned in future. No c/f this presently. Assessment & Plan (01/09/2023 4:33 PM EST): -Hx of unprovoked BL PE's; hypercoagulable workup unremarkable. May consider echo for CTEPH in future -Tolerating AC w/ xarelto. Will refill today Generalized anxiety disorder 05/14/2021 Alcohol use disorder, moderate, dependence 05/14 Assessment & Plan (07/16/2023 1:47 PM EDT): -Drinking about 10 beers a week in 2-3 beer-a-day increments. -Counseled to minimize intake. Elevated BP without diagnosis of hypertension Assessment & Plan (01/29/2024 4:21 PM EDT): -BP elevated today to 144/102 in office w/ the context of patient rushing over to appointment after his father underwent surgery today and consumption of a prodigious volume of coffee. Patient attributes his elevated BP to the above -No symptoms of HTN emergency -Planning to return to the gym -Counseled on lifestyle modifications -Counseled to monitor at home -Will FU in 3 months and re evaluate Resolved Problems Problem Noted Date Diagnosed Date Resolved Date Dyspnea on exertion 12/20/2021 06/07/20 22 COVID 10/30/2021 06/07/2022 Chronic anticoagulation 05/14/2021 08/0 01/2022 Immunizations Immunization Administration Dates Next Due DTP 06/16/1993, 0,06/12/1988,1987,1987 DTaP 06/16/1993, 0,06/12/1988,1987,1987 Hep B, Adolescent or Pediatric 11/09/2003,2002,06/04/2001 Hib (PRP-T) 04/26/1989 IPV 06/16/1993, 0,01/21/1988,1987 Vito COVID-19 Vaccine (Bl ue Cap) 18+ 06/21/2021,06/17/2021 MMR 06/21/1999,03/12/1989 OPV 06/16/1993, 0,01/21/1988,1987 TD (adult), 2 Lf tetanus tox oid, preservative free, adsorbed 06/08/2003 Social History Tobacco Use Types Packs/Day Years Used Date Smoking Tobacco: Never Passive Smoke Exposure: Never Smokeless Tobacco: Never Alcohol Use Standard Drinks/Week Comments Not Currently 10 (1 standard drink = 0.6 oz pu re alcohol) quit aug 2023 Humiliation, Afraid, Rape, and Kick questionnair e Answer Date Recorded Within the last year, have y ou been afraid of your partner or ex-partner? No 01/01/2025 Within the last year, have y ou been humiliated or emotionally abused in other ways by your partner or ex-partner? No Within the last year, have y ou been kicked, hit, slapped, or otherwise physically hurt by your partner or ex-partner? No 01/01/2025 Within the last year, have y ou been raped or forced to have any kind of sexual activity by your partner or ex-partner? No 01/01/2025 PHQ-2 Answer Date Recorded Patient Health Questionnaire-2 Score 0 01/01/2025 Hunger Vital Sign Answer Date Recorded Within the past 12 months, y ou worried that your food would run out before you got the money to buy more. Never true 01/01/20 25 Within the past 12 months, t he food you bought just didn't last and you didn't have money to get more. Never true 01/01/2025 PRAPARE - Transportation Answer Date Re corded In the past 12 months, has l ack of transportation kept you from medical appointments or from getting medications? No 12/07 In the past 12 months, has l ack of transportation kept you from meetings, work, or from getting things needed for daily living? No 01/01/2025 Housing Stability Vital Sign Answer Carlo e Recorded In the last 12 months, was t here a time when you were not able to pay the mortgage or rent on time? No 01/29/2024 Number of Places Lived in the Last Year Not on f ile 01/29/2024 In the last 12 months, was t here a time when you did not have a steady place to sleep or slept in a detention (including now)? No 01/29/2024 PHQ-9 Answer Date Recorded Patient Health Questionnaire-9 Score 0 01/01/2025 Housing Stability Vital Sign Answer Carlo e Recorded In the last 12 months, was t here a time when you were not able to pay the mortgage or rent on time? No 01/01/2025 In the past 12 months, how m any times have you moved where you were living? 0 01/01/2025 At any time in the past 12 m [facility], were you homeless or living in a detention (including now)? No 01/01/2025 Utilities Answer Date Recorded In the past 12 months has th [employer] electric, gas, oil, or water company threatened to shut off services in your home? No 01/01/2025 PHQ-2A Answer Date Recorded Patient Health Questionnaire-2 Score 0 07/16/2023 Sex and Gender Information Value Date Recorded Sex Assigned at Male 01/18/2022 10:37 PM EDT Legal Sex Male 7:27 PM EDT Gender Identity Male 01/18/2022 10:37 PM EDT Sexual Orientation Straight 01/18/2022 10 :37 PM EDT Last Filed Vital Signs Vital Sign Reading Time Taken Comments Blood Pressure 125/81 01/01/2025 2:31 PM EST Pulse 70 01/01/2025 2:31 PM EST Temperature 36.4 C (97.6 F) 01/01/2025 2:31 PM EST Respiratory Rate 17 01/01/2025 2:31 PM EST Oxygen Saturation 99% 01/01/2025 2:31 PM EST Inhaled Oxygen Concentration - - Weight 129 kg (285 lb 7.9 oz) 01/01/2025 2:31 PM EST Height 188 cm (6' 2 ) 01/01/2025 2:31 PM EST Body Mass Index 36.66 01/01/2025 2:31 PM EST Plan of Treatment Health Maintenance Due Date Last Done Comments [facility]-/Child/Adol SDOH Screenings 1987 [facility]-DTaP,Tdap,and Td Vaccines (6 - Tdap) 06/09/2003 06/08/2003, 06/16/1993, 06/16/1993, Additional history exists HPV Vaccines (1 - 3-dose SCDM series) 2014 [facility]- SDOH Screenings 07/01/2025 [facility]-Adult SDOH Screenings 07/01/2025 01/01/2025 [id number] Vaccine ( season) 2025 06/21/2021, 06/17/2021 [facility]-Influenza Vaccine (#1) 2025 [facility]-Depression Screening 01/01/2026 01/01/2025, 12/07 [facility]-Zoster Vaccines (1 of 2) 2037 [facility]-HIB Vaccines Completed 04/26/1989 [facility]-IPV Vaccines Completed 06/16/1993, 10/1993, 06/01/1990, Additional history exists [facility]-Hepatitis B Vaccines Completed 004, 06/08/2003, 06/04/2001 [facility]-HIV Screening Completed 08/03/2021, 05/13/2021 [facility]-Hepatitis C Screening Completed 08/03/2021, 07/2021 [facility]-Obesity Intervention Completed 025, 01/29/2024, 07/16/2023, Additional history exists [facility]-Hepatitis A Vaccines Aged Out No longer eligible based on patient's age to complete this topic [facility]-Pneumococcal Vaccine: Pediatrics (0 to 5 Years) and At-Risk Patients (6 to 49 Years) Aged Out No longer eligible based on patient's age to complete this topic [facility]-Rotavirus Vaccines Aged Out No lo nger eligible based on patient's age to complete this topic [facility]-Varicella Vaccines Discontinued Procedures Procedure Name Priority Date/Time Associated Diagnosis Comments HEPATITIS C ANTIBODY - ED W/REFLEX TO HCV QUANT PCR STAT 08/03/2021 5:12 AM EDT HIV 1/2 ANTIBODY/ANTIGEN SCREEN WITH REFLEX TO HIV I/II DIFFERENTIATION STAT 08/03/2021 5:12 AM EDT from Last 3 Months or Most Recently Relevant to Health Maintenance Results * HIV 1 & 2 Antibody/Antigen Screen (08/03/2021 5:12 AM EDT) HIV 1 & 2 Antibody/Anti gen Screen Nonreactive Nonreactive 08/03/2021 7:16 AM EDT [facility] Blood Venous blood specimen / Unknown Venipuncture / Unknown 08/03/2021 5:12 AM EDT 08/03/2021 5:51 AM EDT Mary Santana MD LAB BLOOD ORDERABLES Final Re sult [facility] [address] [place] [address] * [place] Hepatitis C Antibody (08/03/2021 5:12 AM EDT) Hepatitis C Antibody Negative Negative 08/03/2021 7:17 AM EDT [facility] Blood Venous blood specimen / Unknown Venipuncture / Unknown 08/03/2021 5:12 AM EDT 08/03/2021 5:50 AM EDT Mary Santana MD LAB BLOOD ORDERABLES Final Re sult Performing Organization Address City/[facility]/ZIP Co de Phone Number [facility] [address] [place] [address] from Last 3 Months or Most Recently Relevant to Health Maintenance Insurance [facility] Care Teams Cable Swager Relationship Specialty Start Date End Date Rashaad Donahue MD [address] [id number] PCP - General Internal Medicine 06/07/22
--- OUTSIDE RECORDS SUMMARY | 2025-09-30 08:35 | XMS_ITS | Encounter Summary ---
Author Organization [facility] Address [address] [place] [address] Care Team Providers Care Rigging Man Name Role Phone Provider, No Known Primary Care Provider [phone] Encounter Details Date Type Department Care Team (Latest Contact Info) Description 08/24/2025 Travel Social History Tobacco Use Types Packs/Day Years [...] on file documented as of this encounter Functional Status * Calculated C-SSRS Risk Score (Lifetime/Recent) Answer Date of Assessment Author No Risk Indicated 08/24/2025 12:59 PM EDT Renuka Hogan RN * [place] Suicide Severity Rating Scale (Screener/Recent Self-Report) Question Answer Date of Assessment Author 1. Wish to be (Past 1 Month) No 025 12:59 PM EDT Renuka Hogan RN 2. Non-Specific Active Suici natalya Thoughts (Past 1 Month) No 08/24/2025 12:59 PM EDT Audrey Hogan RN 6. Suicidal Behavior (Lifetime) No 12:59 PM EDT Renuka Hogan, ROSE documented as of this encounter Plan of Treatment Not on file documented as of this encounter Visit Diagnoses Not on filedocumented in this encounter Additional Health Concerns Infection Onset Date Last Indicated Resolved Time COVID (confirmed) 11/16/2021 11/16/2021 08/24/2025 1:58 PM EDT documented as of this encounter Care Teams Rigging Man Relationship Specialty Start Date End Date Provider, No Known [facility] [place] [address] PCP - General 08/24/25 08/25/25 documented as of this encounter
--- OUTSIDE RECORDS SUMMARY | 2025-09-30 08:36 | XMS_ITS | Clinical Summary ---
[facility] Address [address] [place] [address] Care Team Providers Care Land Surveyor Manager Name Role Phone Benito Snyder MD Primary Care Provider [phone] Allergies Active Allergy Reactions Criticality Noted Date Comments Shellfish Allergy Anaphylaxis High 05/13/2021 Sulfa Antibiotics Unknown - Low Severity Low 2020 Medications rivaroxaban (XARELTO) 20 MG tablet Take 1 tablet by mouth Daily. Pt takes medication everyday at 1430 last taken 08/24 1 Active acetaminophen (TYLENOL) 325 MG tablet Take 2 tablets by mouth Every 6 (Six) Hours As Needed for Mild Pain. 5 Active aspirin 81 MG EC tablet Take 1 tablet by mouth Daily. 5 Active atorvastatin (LIPITOR) 10 MG tablet Take 1 tablet by mouth Every Night. 90 tablet 5 Active Active Problems Problem Noted Date Diagnosed Date Class 2 severe obesity with serious comorbidity in adult 08/25/2025 Pulmonary embolism 08/24/2025 Family history of blood clots 08/24/2025 History of COVID-19 08/24/2025 HTN (hypertension) 08/24/2025 Encounters Date Type Department Care Team Description 08/26/2025 Telephone [facility] [address] [facility] [address] [place] [address] JAIN-RETURN MISSED CALL 08/26/2025 Results Follow-Up [facility] [address] [place] [address] Dania Baez MD Results 08/24/2025 1:01 PM EDT - 08/25/2025 1:12 PM EDT Hospital Encounter [place] [address] [place] [address] Lance Navarro MD Nasim, Jawed, MD Furlow, Stephen Matthew, MD Acute pulmonary embolism without acute cor pulmonale, unspecified pulmonary embolism type (Primary Dx); Tachycardia; Hyperglycemia Discharge Disposition: Home or Self Care 08/24/2025 Travel from Last 3 Months Social History Tobacco Use Types Packs/Day Years [...] on file Sexual Orientation Not on file Last Filed Vital Signs Vital Sign Reading [...] Mass Index 38.01 08/24/2025 4:08 PM EDT Plan of Treatment Health Maintenance Due Date Last Done Comments TDAP/TD VACCINES (2 - Tdap) 06/08/2013 06/08/2003 INFLUENZA VACCINE 06/05/2025 ANNUAL PHYSICAL 08/26/2025 HEPATITIS C SCREENING Completed 05/13/2021 Pneumococcal Vaccine 0-49 Aged Out No longer eligible based on patient's age to complete this topic Procedures Procedure Name Priority Date/Time Associated Diagnosis Comments FERRITIN Add-On 08/25/2025 6:16 AM EDT LIPID PANEL Add-On 08/25/2025 6:16 AM EDT CBC WITH AUTO DIFFERENTIAL Urgent 08/25/2025 6:16 AM EDT COMPREHENSIVE METABOLIC PANEL [...] ECG 12-LEAD STAT 08/24/2025 1:00 PM EDT LIGHT BLUE TOP STAT 08/24/2025 12:59 PM EDT GOLD TOP - SST STAT 08/24/2025 12:59 PM EDT LAVENDER TOP STAT 08/24/2025 12:59 PM EDT DK GREEN TOP STAT 08/24/2025 12:59 PM EDT CBC AND DIFFERENTIAL STAT 08/24/2025 12:59 PM EDT APTT STAT 08/24/2025 12:59 PM EDT PROTIME-INR STAT 08/24/2025 12:59 PM EDT CBC WITH AUTO DIFFERENTIAL STAT 08/24/2025 12:59 PM EDT TROPONIN STAT 08/24/2025 12:59 PM EDT COMPREHENSIVE METABOLIC PANEL STAT 08/24/2025 12:59 PM EDT RAINBOW DRAW STAT 08/24/2025 12:59 PM EDT from Last 3 Months Results * (ABNORMAL) CBC Auto Differential (08/25/2025 6:16 AM EDT) Only the most recent of2 resultswithin the time period is included. [facility] WBC 9.85 3.40 - 10.80 10*3/mm3 08/25/2025 6:59 AM [facility] RBC 5.38 4.14 - 5.80 10*6/mm3 08/25/2025 6:59 AM [facility] Hemoglobin 16.5 13.0 - 17.7 g/dL 08/25/2025 6:59 AM [facility] Hematocrit 48.1 37.5 - 51.0 % 08/25/2025 6:59 AM [facility] MCV 89.4 79.0 - 97.0 fL 08/25/2025 6:59 AM [facility] MCH 30.7 26.6 - 33.0 pg 08/25/2025 6:59 AM [facility] MCHC 34.3 31.5 - 35.7 g/dL 08/25/2025 6:59 AM [facility] RDW 12.4 12.3 - 15.4 % 08/25/2025 6:59 AM [facility] RDW-SD 40.2 37.0 - 54.0 fl 08/25/2025 6:59 AM [facility] MPV 10.7 6.0 - 12.0 fL 08/25/2025 6:59 AM [facility] Platelets 202 140 - 450 10*3/mm3 08/25/2025 6:59 AM [facility] Neutrophil % 49.2 42.7 - 76.0 % 08/25/2025 6:59 AM [facility] Lymphocyte % 38.2 19.6 - 45.3 % 08/25/2025 6:59 AM [facility] Monocyte % 9.3 5.0 - 12.0 % 08/25/2025 6:59 AM [facility] Eosinophil % 2.1 0.3 - 6.2 % 08/25/2025 6:59 AM [facility] Basophil % 0.7 0.0 - 1.5 % 08/25/2025 6:59 AM [facility] Immature Grans % 0.5 0.0 - 0.5 % 08/25/2025 6:59 AM EDT [facility] Neutrophils, Absolute 4.84 1.70 - 7.00 10*3/mm3 08/25/2025 6:59 AM EDT [facility] Lymphocytes, Absolute 3.76(H) 0.70 - 3.10 10*3/mm3 08/25/2025 6:59 AM EDT [facility] Monocytes, Absolute 0.92(H) 0.10 - 0.90 10*3/mm3 08/25/2025 6:59 AM EDT [facility] Eosinophils, Absolute 0.21 0.00 - 0.40 10*3/mm3 08/25/2025 6:59 AM EDT [facility] Basophils, Absolute 0.07 0.00 - 0.20 10*3/mm3 08/25/2025 6:59 AM EDT [facility] Immature Grans, Absolute 0.05 0.00 - 0.05 10*3/mm3 08/25/2025 6:59 AM EDT [facility] nRBC 0.0 0.0 - 0.2 /100 WBC 08/25/2025 6:59 AM EDT [facility] Blood Line / Unknown 08/25/2025 6: 16 AM EDT 08/25/2025 6:51 AM EDT us Lisa Cleveland MD LAB BLOOD ORDERABLES Final Resul t [facility]
[address] [place] [address], * (ABNORMAL) Ferritin (08/25/2025 6:16 AM EDT) Ferritin 625.00(H) 30.00 - 400.00 ng/mL 08/25/2025 1:12 PM EDT [facility] Blood Line / Unknown 08/25/2025 6: 16 AM EDT 08/25/2025 6:51 AM EDT [facility] - 08/25/2025 1:12 PM EDT Results may be falsely decreased if patient taking Biotin. us Dania Baez MD LAB BLOOD ORDERABLES Final Resul t [facility]
[address] [place] [address], * (ABNORMAL) Lipid Panel (08/25/2025 6:16 AM EDT) Total Cholesterol 178 0 - 200 mg/dL 08/25/2025 11:24 AM EDT [facility] Triglycerides 168(H) 0 - 150 mg/dL 08/25/2025 11:24 AM EDT [facility] HDL Cholesterol 37(L) 40 - 60 mg/dL 08/25/2025 11:24 AM EDT [facility] LDL Cholesterol 111(H) 0 - 100 mg/dL 08/25/2025 11:24 AM EDT [facility] VLDL Cholesterol 30 5 - 40 mg/dL 08/25/2025 11:24 AM EDT [facility] LDL/HDL Ratio 2.90 08/25/2025 11:24 AM T [facility] Blood Line / Unknown 08/25/2025 6: 16 AM EDT 08/25/2025 6:51 AM EDT [facility] - 08/25/2025 11:24 AM EDT Cholesterol [...] MD LAB BLOOD ORDERABLES F inal Result [facility]
[address] [place] [address], * Comprehensive Metabolic Panel (08/25/2025 6:16 AM EDT) Only the most recent of2 resultswithin the time period is included. Glucose 88 65 - 99 mg/dL 08/25/2025 7:17 AM EDT [facility] BUN 11.0 6.0 - 20.0 mg/dL 08/25/2025 7:17 AM EDT [facility] Creatinine 0.89 0.76 - 1.27 mg/dL 08/25/2025 7:17 AM EDT [facility] Sodium 139 136 - 145 mmol/L 08/25/2025 7:17 AM EDT [facility] Potassium 4.1 3.5 - 5.2 mmol/L 08/25/2025 7:17 AM EDT [facility] Chloride 103 98 - 107 mmol/L 08/25/2025 7:17 AM EDT [facility] CO2 23.7 22.0 - 29.0 mmol/L 08/25/2025 7:17 AM EDT [facility] Calcium 9.2 8.6 - 10.5 mg/dL 08/25/2025 7:17 AM EDT [facility] Total Protein 7.0 6.0 - 8.5 g/dL 08/25/2025 7:17 AM EDT [facility] Albumin 3.7 3.5 - 5.2 g/dL 08/25/2025 7:17 AM EDT [facility] ALT (SGPT) 18 1 - 41 U/L 08/25/2025 7:17 AM EDT [facility] AST (SGOT) 16 1 - 40 U/L 08/25/2025 7:17 AM EDT [facility] Alkaline Phosphatase 56 39 - 117 U/L 08/25/2025 7:17 AM T [facility] Total Bilirubin 0.8 0.0 - 1.2 mg/dL 08/25/2025 7:17 AM EDT [facility] Globulin 3.3 gm/dL 08/25/2025 7:17 AM T [facility] A/G Ratio 1.1 g/dL 08/25/2025 7:17 AM [facility] BUN/Creatinine Ratio 12.4 7.0 - 25.0 08/25/2025 7:17 AM T [facility] Anion Gap 12.3 5.0 - 15.0 mmol/L 08/25/2025 7:17 AM [facility] eGFR 113.2 >60.0 mL/min/1.7 3 08/25/2025 7:17 AM [facility] Blood Line / Unknown 08/25/2025 6: 16 AM EDT 08/25/2025 6:51 AM EDT [facility] - 08/25/2025 7:17 AM EDT GFR [...] not include race as a factor us Lisa Cleveland MD LAB BLOOD ORDERABLES Final Resul t [facility]
[address] [facility] [place] [address], * Telemetry Scan (08/25/2025 5:35 AM EDT) Only the most recent of4 resultswithin the time period is included. [facility] Onbase ECG ORDERABLES Final Result * XR [...] <6 <22 ng/L 08/24/2025 2:40 PM EDT [facility] Troponin T Numeric Delta 08/24/2025 2:40 PM EDT [facility] Comment:Unable to calculate. Blood Line / Unknown 08/24/2025 2: 10 PM EDT 08/24/2025 2:15 PM EDT Narrative [facility] - 08/24/2025 2:40 PM EDT High [...] injury due to an underlying chronic condition. Lance Navarro MD LAB BLOOD ORDERABLES Final R esult [facility]
[address] [place] [address], * CT Angiogram Chest Pulmonary Embolism (08/24/2025 [...] 3:59 PM EDT HEART RATE=84 bpm RR Twlergaq=920 ms LA Zwajmtxd=132 ms P Horizontal Sledge= deg P Front Sledge=70 deg QRSD Interval=97 ms QT Bwgmmahw=942 ms HYeB=724 ms QRS Sledge=89 deg T Wave Sledge=10 deg - BORDERLINE ECG - Sinus rhythm Consider left atrial enlargement Borderline T wave abnormalities NO PRIOR TRACING AVAILABLE FOR COMPARISON Electronically Signed By: Nazanin Quarles ([facility]) 2025-08-24 15:59:15 Date and Time of Study:2025-08-24 13:00:13 Procedure Note Nazanin Quarles MD - 08/24/2025 HEART RATE=84 bpm RR Utdbogmd=371 ms LA Lprsrybn=427 ms P Horizontal Sledge= deg P Front Sledge=70 deg QRSD Interval=97 ms QT Eszfgkty=717 ms JKiT=559 ms QRS Sledge=89 deg T Wave Sledge=10 deg - BORDERLINE ECG - Sinus rhythm Consider left atrial enlargement Borderline T wave abnormalities NO PRIOR TRACING AVAILABLE FOR COMPARISON Electronically Signed By: Nazanin Quarles ([facility]) 2025-08-24 15:59:15 Date and Time of Study:2025-08-24 13:00:13 us Lance Navarro MD ECG ORDERABLES Final Result ECG * Gold Top - [facility] (08/24/2025 12:59 PM EDT) Extra Tube Hold for add-ons. 08/24/2025 1:15 PM EDT [facility] Comment:Auto resulted. Blood Venipuncture / Unknown 08/24/2025 12:59 PM EDT 08/24/2025 1:03 PM EDT us Lance Navarro MD LAB BLOOD ORDER ONLY Final R esult Performing Organization Address City/[facility]/ZIP Co de Phone Number [facility]
[address] [place] [address], [place] [phone] * Green Top (Gel) (08/24/2025 12:59 PM EDT) Extra Tube Hold for add-ons. 08/24/2025 1:15 PM EDT [facility] Comment:Auto resulted. Blood Venipuncture / Unknown 08/24/2025 12:59 PM EDT 08/24/2025 1:03 PM EDT us Lance Navarro MD LAB BLOOD ORDER ONLY Final R esult Performing Organization Address [facility] Co de Phone Number [facility]
[address] [place] [id number], [place] [phone] * Lavender Top (08/24/2025 12:59 PM EDT) Extra Tube hold for add-on 08/24/2025 1:15 PM EDT [facility] Comment:Auto resulted Blood Venipuncture / Unknown 08/24/2025 12:59 PM EDT 08/24/2025 1:03 PM EDT us Lance Navarro MD LAB BLOOD ORDER ONLY Final R esult Performing Organization Address City/[facility] Co de Phone Number [facility]
[address] [place] [address], [place] [phone] * Light Blue Top (08/24/2025 12:59 PM EDT) Extra Tube Hold for add-ons. 08/24/2025 1:15 PM EDT [facility] Comment:Auto resulted Blood Venipuncture / Unknown 08/24/2025 12:59 PM EDT 08/24/2025 1:03 PM EDT us Lance Navarro MD LAB BLOOD ORDER ONLY Final R esult Performing Organization Address City/[facility]/ZIP Co de Phone Number [facility]
[address] [place] [address], * High Sensitivity Troponin T (08/24/2025 12:59 PM EDT) HS Troponin T <6 <22 ng/L 08/24/2025 1:32 PM EDT [facility] Blood Venipuncture / Unknown 08/24/2025 12:59 PM EDT 08/24/2025 1:03 PM EDT Narrative [facility] - 08/24/2025 1:32 PM EDT High [...] ORDERABLES Final R esult Performing Organization Address City/[facility]/ZIP Co de Phone Number [facility]
[address] [place] [address], * aPTT (08/24/2025 12:59 PM EDT) PTT 33.8 22.7 - 35.4 seconds 08/24/2025 1:30 PM EDT [facility] Blood Venipuncture / Unknown 08/24/2025 12:59 PM EDT 08/24/2025 1:03 PM EDT Lance Navarro MD LAB BLOOD ORDERABLES Final R esult Performing Organization Address City/[facility]/ZIP Co de Phone Number [facility]
[address] [place] [address], [place] [phone] * (ABNORMAL) Protime-INR (08/24/2025 12:59 PM EDT) Protime 17.2(H) 11.7 - 14.2 Seconds 08/24/2025 1:30 PM EDT [facility] INR 1.40(H) 0.90 - 1.10 08/24/2025 1:30 PM EDT [facility] Blood Venipuncture / Unknown 08/24/2025 12:59 PM EDT 08/24/2025 1:03 PM EDT Lance Navarro MD LAB BLOOD ORDERABLES Final R esult Performing Organization Address City/[facility] Co de Phone Number [facility]
[address] [place] [address], [place] [phone] from Last [address] [place] [address] EMPLOYEE Advance Directives * CPR (Attempt to Resuscitate) (Latest Code Status on File) Date Activated Date Inactivated Comments 08/24/2025 6:13 PM 08/25/2025 3:12 PM Question Answer Comments Code Status (Patient has no pulse and is not breathing): CPR (Attempt to Resuscitate) Medical Interventions (Patie nt has pulse or is breathing): Full Support Care Teams Land Surveyor Manager Relationship Specialty Start Date End Date Benito Snyder MD [address] [place] [address] PCP - General Family Medicine 08/26/25
--- NOTE | 2025-09-30 08:45 | CA_ITS ---
APPROVED REPORT EXAM: Comprehensive 2D, Doppler, and color-flow Echocardiogram Document Coordinator: TEMO Sullivan, RVS Ht: 6 ft 2 in Wt: 289lbs BSA: 2.54 BP: 144/87 mmHg Indications: Dyspnea, Hx-Saddle PE 5 years ago, Coronary artery calcifications on CT 2D Dimensions Left Atrium 2.59 cm M-Mode Dimensions RVDd 3.09 cm (0.9-2.6) LA Diam 3.96 cm (1.9-4.0) LVDd 5.35 cm (3.5-5.7) LVDs 3.26 cm (3.5-5.7) IVSd 1.09 cm (0.6-1.1) PWd 1.17 cm (0.6-1.1) EF (Teich) 69.10% EPSs 0.57 cm FS 39.10% EDV (Teich) 138.30 mL TAPSE 2.21 (<1.7) ESV (Teich) 42.80 mL LV Diastology E Decel Time 263 (160-240 msec) E/A Ratio 1.08 MED A' 10.50 cm/s LAT A' 9.10 cm/s Aortic Valve CAPRI Index 1.04 cm2/m2 AoV Peak Tereso. 109.0 (50-130 cm/s) AO Peak GR. 4.80 mmHg AO Mean GR. 2.40 (<5 mmHg) AO VTI 20.7 (18-25 cm) CAPRI (VTI) 2.70 (2.5-4.5 cm2) Mitral Valve MV A Velocity 48.0 (40-130 cm/s) E/A Ratio 1.08 Tricuspid Valve TR P. Velocity 294.00 cm/s RAP Estimate 10.00 mmHg RVSP 44.60 mmHg Left Ventricle The left ventricle is normal size. Left ventricular systolic function is low-normal. There is normal left ventricular wall thickness. There is normal LV segmental wall motion. The left ventricular diastolic function is normal. LVEF is 50%. Right Ventricle The right ventricle is mildly dilated. The right ventricular systolic function is normal. Atria The left atrium size is normal. The right atrium size is normal. There is no color Doppler evidence of interatrial shunt. Aortic Valve The aortic valve opens well. There is no hemodynamically significant aortic valvular stenosis. No aortic regurgitation is present. Mitral Valve The mitral valve is normal in structure. No evidence of mitral valve stenosis. Trace mitral regurgitation is present. Tricuspid Valve The tricuspid valve leaflets are thin and pliable. Mild tricuspid regurgitation. RVSP is 35-40 mmHg. Pulmonic Valve The pulmonary valve is grossly normal in structure. Trace pulmonic valve regurgitation is present. Great Vessels The aortic root is normal in size. IVC is normal in size and collapses >50% with inspiration. Pericardium There is no pericardial effusion. Other Information Study Quality: Fair Conclusion Low-normal LV systolic function (LVEF 50%). Mild RV dilation. Mild TR. RVSP 35-40 mmHg. In the setting of young age and low-normal LV systolic function, further evaluation for ischemia may be suggested in the setting of known coronary calcification on non-cardiac imaging. Electronically signed by : Joanna Pike MD 10/04/2025 14:03:20
== END 2025-09-30 23:59 | disposition home or self-care (01) ==
LOC: RT 08:33
PROVIDERS: PCP Family Medicine; Visit Provider Physician Assistant
DX: I07.1 Rheumatic tricuspid insufficiency (principal); I11.9 Hypertensive heart disease without heart failure; I25.10 Atherosclerotic heart disease of native coronary artery without angina pectoris; Z82.49 Family history of ischemic heart disease and other diseases of the circulatory system
CPT/HCPCS: 93306